=== PATIENT | female | born 1985 | race Two or more races ===

== ENCOUNTER 2019-11-15 06:00 | Inpatient (IN) | payer BC, OTHER ==
[2019-11-15] MEDS ORDERED: OXYTOCIN 10 UNIT/ML 1 ML VIAL IM PRN (07:05)
[2019-11-15] MEDS ORDERED: LIDOCAINE 0.5% (PF) 5 MG/ML (50 ML SDV) SQ PRN (07:05)
[2019-11-15] MEDS ORDERED: CARBOPROST TROMETHAMINE 250 MCG/ML 1 ML AMP IM PRN (07:05)
[2019-11-15] MEDS ORDERED: TERBUTALINE 1 MG/ML VIAL SQ PRN (07:05)
[2019-11-15] MEDS ORDERED: METHYLERGONOVINE 0.2 MG/ML 1 ML AMP IM PRN (07:05)
[2019-11-15 07:12] LABS: Glucose,Whole Blood 97 mg/dL (75-99)
[2019-11-15] MEDS ORDERED: OXYTOCIN 30 UNITS/500 ML NS 30 UNIT in SALINE 1 500ML.BAG IV SCH (07:15)
[2019-11-15 07:25] LABS: Basophils # (A) 0.1 k/uL (0-0.2); Basophils % (A) 1 %; Eosinophils # (A) 0.1 k/uL (0-0.7); Eosinophils % (A) 1 %; HCT 45.7 % (34.0-46.0); HGB 14.9 gm/dL (11.4-16.0); Lymphocytes # (A) 2.7 k/uL (1.0-4.8); Lymphocytes % (A) 28 %; MCH 26.9 pg (25.0-35.0); MCHC 32.6 g/dL (31.0-37.0); MCV 82.3 fL (80.0-100.0); Mean Platelet Volume 7.8; Monocytes # (A) 0.4 k/uL (0-1.0); Monocytes % (A) 4 %; Neutrophils # (A) 6.6 k/uL (1.3-7.7); Neutrophils % (A) 66 %; Platelet Count 226 k/uL (150-450); RBC 5.55 m/uL (3.80-5.40); RDW 14.1 % (11.5-15.5); WBC 9.9 k/uL (3.8-10.6)
[2019-11-15] MEDS ORDERED: AMPICILLIN 2,000 MG in SODIUM CHLORIDE 0.9% 100 ML IVPB STA (07:26)
[2019-11-15] MEDS: LACTATED RINGERS 1,000 ML IV SCH ×2 (08:13→11:45)
--- NOTE | 2019-11-15 08:25 | P.HPOB ---
History of Present Illness H&P Date: 11/15/19 Chief Complaint: Induction of labor 33-year-old presents at 39 weeks and 2 days for induction of labor. Her cervix is 1 cm dilated, 80% effaced, and -2 station. She is francisco j irregularly. heart tones 130 with moderate variability and reactive. Review of Systems All systems: negative Constitutional: Denies chills, Denies fever Eyes: denies blurred vision, denies pain Ears, nose, mouth and throat: Denies headache, Denies sore throat Cardiovascular: Denies chest pain, Denies shortness of breath Respiratory: Denies cough Gastrointestinal: Denies abdominal pain, Denies diarrhea, Denies nausea, Denies vomiting Genitourinary: Denies dysuria, Denies hematuria Musculoskeletal: Denies myalgias Integumentary: Denies pruritus, Denies rash Neurological: Denies numbness, Denies weakness Psychiatric: Denies anxiety, Denies depression Endocrine: Denies fatigue, Denies weight change Past Medical History Additional Past Medical History / Comment(s): Obstetric history: This is her first and she's had care with me. HIV nonreactive, RPR nonreactive, hepatitis B-, Blood type is B+, positive GBS bacteriuria. She has been diagnosed with gestational diabetes and has been followed with [facility] and myself. She's been getting BPP's and NSTs as well as growth ultrasounds which have been normal. Her sugars are controlled with insulin. Additional Past Surgical History / Comment(s): LEEP Past Psychological History: No Psychological Hx Reported Past Alcohol Use History: None Reported Past Drug Use History: None Reported Medications and Allergies Home Medications Medication Instructions Recorded Confirmed Type Insulin NPH [humuLIN N] 18 units SQ HS 11/15/19 11/15/19 History Pnv No.95/Ferrous Fum/Folic AC 1 each PO DAILY 11/15/19 11/15/19 History [ Multivitamin Tablet] Allergies Allergy/AdvReac Type Severity Reaction Status Date / Time azithromycin Allergy Rash/Hives Verified 11/15/19 07:02 Exam Osteopathic Statement: *. No significant issues noted on an osteopathic structural exam other than those noted in the History and Physical/Consult. Intake and Output 11/14/19 11/15/19 11/15/19 22:59 06:59 14:59 Other: Weight 105.687 kg Heart: Regular rate and rhythm Lungs: Clear to auscultation bilaterally Abdomen: Soft, nontender Extremities: Negative Homans sign Results Result Diagrams: 11/15/19 07:05 Abnormal Lab Results - Last 24 Hours (Table) 11/15/19 Range/Units 07:05 RBC 5.55 H (3.80-5.40) m/uL Assessment and Plan (1) Normal labor Current Visit: Yes Status: Acute Code(s): O80 - ENCOUNTER FOR FULL-TERM UNCOMPLICATED DELIVERY; Z37.9 - OUTCOME OF DELIVERY, UNSPECIFIED SNOMED Code(s): 69745450 (2) Gestational diabetes Current Visit: Yes Status: Acute Code(s): O24.419 - GESTATIONAL DIABETES MELLITUS IN , UNSP CONTROL SNOMED Code(s): 19227970 Plan: 1. Monitor blood sugars 2. Induction of labor with amniotomy and Pitocin 3. Anticipate normal vaginal delivery
[2019-11-15 09:16] LABS: Glucose,Whole Blood 85 mg/dL (75-99)
[2019-11-15 11:33] LABS: Glucose,Whole Blood 85 mg/dL (75-99)
[2019-11-15] MEDS ORDERED: SODIUM CHLORIDE 0.9% 100 ML BAG ONE (11:41)
[2019-11-15] MEDS ORDERED: ROPIVACAINE 5MG/ML 20ML VIAL ONE (11:41)
[2019-11-15] MEDS ORDERED: fentaNYL (PF) 50 MCG/ML 5 ML AMP ONE (11:41)
[2019-11-15] MEDS: AMPICILLIN 1,000 MG in SODIUM CHLORIDE 0.9% 50 ML IVPB SCH ×3 (12:11→19:49)
[2019-11-15 13:25] LABS: Glucose,Whole Blood 74 mg/dL (75-99)
[2019-11-15 15:10] LABS: Glucose,Whole Blood 70 mg/dL (75-99)
[2019-11-15 17:26] LABS: Glucose,Whole Blood 78 mg/dL (75-99)
[2019-11-15 19:10] LABS: Glucose,Whole Blood 65 mg/dL (75-99)
[2019-11-15 20:13] LABS: Glucose,Whole Blood 89 mg/dL (75-99)
[2019-11-15 21:26] LABS: Glucose,Whole Blood 79 mg/dL (75-99)
[2019-11-15 22:13] LABS: Glucose,Whole Blood 76 mg/dL (75-99)
[2019-11-15] MEDS ORDERED: CITRIC ACID-SODIUM CITRATE 15 ML CUP PO ONE (23:11)
[2019-11-15 23:23] LABS: Glucose,Whole Blood 86 mg/dL (75-99)
[2019-11-15] MEDS ORDERED: KETOROLAC 30 MG/ML 1 ML VIAL ONE (23:35)
[2019-11-15] MEDS ORDERED: ceFAZolin 1,000 MG VIAL ONE (23:35)
[2019-11-15] MEDS ORDERED: MORPHINE SULFATE (PF) 0.3 MG/0.3 ML SYR ONE (23:35)
[2019-11-15] MEDS ORDERED: fentaNYL (PF) 50 MCG/ML 2 ML AMP ONE (23:35)
[2019-11-15] MEDS ORDERED: OXYTOCIN 10 UNIT/ML 1 ML VIAL ONE (23:35)
[2019-11-15] MEDS ORDERED: ONDANSETRON 4 MG/2 ML VIAL ONE (23:35)
[2019-11-16] MEDS ORDERED: diphenhydrAMINE 50 MG/ML 1 ML VIAL IVP PRN ×3 (00:04→00:21)
[2019-11-16] MEDS ORDERED: NALOXONE 0.4 MG/ML 1 ML VIAL IV PRN (00:04)
[2019-11-16] MEDS ORDERED: KETOROLAC 30 MG/ML 1 ML VIAL IVP PRN (00:04)
[2019-11-16] MEDS ORDERED: ONDANSETRON 4 MG/2 ML VIAL IVP PRN (00:04)
[2019-11-16] MEDS ORDERED: MORPHINE SULFATE 2 MG/ML SYRINGE IVP PRN (00:04)
[2019-11-16] MEDS ORDERED: diphenhydrAMINE 25 MG CAP PO PRN (00:21)
[2019-11-16] MEDS ORDERED: diphenhydrAMINE 50 MG CAP PO PRN (00:21)
[2019-11-16] MEDS ORDERED: METOCLOPRAMIDE 5 MG/ML 2 ML VIAL IVP PRN (00:21)
[2019-11-16] MEDS ORDERED: ZOLPIDEM 5 MG TAB PO PRN (00:21)
[2019-11-16] MEDS ORDERED: LACTATED RINGERS 1,000 ML IV SCH (00:30)
[2019-11-16] MEDS ORDERED: OXYTOCIN 20 UNITS/1000 ML NS 1,000 ML IV SCH (00:30)
--- NOTE | 2019-11-16 00:30 | P.OP ---
Date of Procedure: 11/16/19 Preoperative Diagnosis: 1. at 39 weeks and 5 days 2. Failure to progress 3. tachycardia 4. Gestational diabetes Postoperative Diagnosis: 1. at 39 weeks and 5 days 2. Failure to progress 3. tachycardia 4. Gestational diabetes 5. Large for gestational age baby Procedure(s) Performed: Primary low transverse Anesthesia: spinal Surgeon: Leanne Peacock Post Acute Care Nurse Practitioner #1: Gisele Bolanos Estimated Blood Loss (ml): 600 IV fluids (ml): 800 Urine output (ml): 100 Pathology: other (Placenta) Condition: stable Disposition: floor Indications for Procedure: 33-year-old presented at 39 weeks and 5 days for induction of labor. Her cervix was 1 cm dilated, 80% effaced, and -2 station. She is francisco j irregularly. heart tones 130 with moderate variability and reactive. Pitocin was started and amniotomy was performed at 7:45 AM and clear fluid noted. When she was very uncomfortable and 3 cm she did get an epidural. She labored for several hours and did get to 7 cm dilated. She remained is dilation for a few hours and the baby started to increase in heart rate to 160s maintaining moderate variability. Due to the gestational diabetes and the potential for macrosomia along with the arrest of dilatation, as well as the heart rate, the decision was made for section. Informed consent was obtained and section was called. Operative Findings: Viable female, Apgars 8, 9, weight 9 lbs. 11 oz. Normal uterus, tubes, ovaries. Description of Procedure: Patient was taken to the operating room where spinal anesthesia was found be adequate. She was prepped and draped in normal sterile fashion in dorsal supine position with a leftward tilt. Pfannenstiel skin incision was made the scalpel and carried through to the underlying layer of fascia with the scalpel. Fascia was incised in midline and carried bilaterally with the Rebolledo scissors. The superior aspect of the fascial incision was grasped with Celia clamps elevated and the underlying rectus muscles dissected off with the Rebolledo's. Attention was then turned to inferior aspect of same incision which in a similar fashion was grasped tented up and the underlying rectus muscles dissected off with the Rebolledo's. The rectus muscles were the midline and the peritoneum was identified tented up and entered sharply with the scalpel. The incision was extended superiorly and inferiorly with good visualization of the bladder. The bladder blade was inserted and the vesicouterine peritoneum was incised the Me tzenbaums then carried bilaterally and bladder flap created digitally. A low transverse incision was then made on the uterus with the scalpel. This was carried bilaterally and digital manner. Infant's head delivered atraumatically, nose and mouth bulb suctioned, cord clamped and cut, handed off to waiting nurses. Apgars 8,9, weight 9 lbs. 11 oz. Placenta delivered manually, intact with three-vessel cord. The uterus is exteriorized and cleared of all clots and debris. The uterine incision was closed with 0 Vicryl in a running locked fashion. Second layer of the same sutures used in imbricating fashion to obtain excellent hemostasis. Both ovaries and tubes appeared normal. The uterus was placed back into the abdomen. The peritoneum was reapproximated using 2-0 Vicryl in a running fashion. The fascia was reapproximated using 0 Vicryl in a running fashion. The subcutaneous tissues closed with 3-0 Vicryl running fashion. The skin was closed maite. Patient tolerated the procedure well, sponge and instrument counts were correct times 2 and she was taken to the recovery room in stable condition.
[2019-11-16 07:08] LABS: Basophils % (A) 0 %; Eosinophils % (A) 0 %; Lymphocytes % (A) 16 %; MCH 27.2 pg (25.0-35.0); MCHC 32.3 g/dL (31.0-37.0); MCV 84.2 fL (80.0-100.0); Mean Platelet Volume 7.9; Monocytes # (A) 0.5 k/uL (0-1.0); Monocytes % (A) 4 %; Neutrophils # (A) 9.7 k/uL (1.3-7.7); Neutrophils % (A) 79 %; Platelet Count 149 k/uL (150-450); RBC 4.27 m/uL (3.80-5.40); RDW 14.4 % (11.5-15.5); WBC 12.4 k/uL (3.8-10.6)
[2019-11-16 07:13] LABS: HGB 11.6 gm/dL (11.4-16.0)
[2019-11-16] MEDS: KETOROLAC 30 MG/ML 1 ML VIAL IVP PRN ×3 (07:20→18:24)
[2019-11-16] MEDS: SENNOSIDES-DOCUSATE SODIUM 1 EACH TAB PO SCH ×2 (08:43→20:27)
--- NOTE | 2019-11-16 08:45 | P.PN ---
Progress Note - Text Progress Note Date: 11/16/19 (012) Anesthesia Postop day 1 Subjective: Status Post with Duramorph. Patient seen and examined. Doing well without complaint. VAS 0. No nausea or vomiting. Mild pruritus tolerable.. Afebrile. Gross lower extremity strength intact. Spinal site intact without induration. Without apparent anesthetic complications. Objective: Vital signs reviewed Lungs: Good chest excursion Abdomen: Appears nondistended Assessment: Status post with Duramorph postop day 1 Plan: Continue current care with your medical management. Anticipated and the Duramorph around midnight tonight, you may see increased pain needs around this time.
[2019-11-16] MEDS: ACETAMINOPHEN TAB 325 MG TAB PO PRN (21:07)
[2019-11-17] MEDS: KETOROLAC 30 MG/ML 1 ML VIAL IVP PRN (00:29)
[2019-11-17] MEDS: ACETAMINOPHEN TAB 325 MG TAB PO PRN (03:36)
[2019-11-17] MEDS: IBUPROFEN 600 MG TAB PO PRN ×3 (06:42→20:16)
--- NOTE | 2019-11-17 07:50 | P.PNOBGPC ---
Subjective - Subjective Principal diagnosis: Status post primary low transverse postop day #1 Interval history: Patient seen and examined. Denies nausea, vomiting, chest pain, shortness of breath or calf pain. Patient reports: Reports appetite normal, Reports voiding normally, Reports pain well controlled : doing well Objective - Vital Signs Latest vital signs: Vital Signs Temp Pulse Resp BP Pulse Ox 11/17/19 00:00 98.1 F 73 16 113/72 98 11/16/19 20:00 97.7 F 78 16 112/68 100 11/16/19 16:00 98.8 F 128 H 18 125/82 11/16/19 11:42 97.8 F 81 18 123/70 11/16/19 09:00 18 11/16/19 08:00 97.9 F 86 16 121/71 Intake and Output 11/16/19 11/17/19 11/17/19 22:59 06:59 14:59 Output Total 400 Balance -400 Output: Urine 400 Other: # Voids 1 1 - Exam Lungs: bilateral: normal Chest: Normal S1, Normal S2 Extremities: Present: normal Abdomen: Present: normal appearance, soft. Absent: distention, tenderness Incision: Present: normal, dry, intact Uterus: Present: normal, firm Assessment and Plan (1) Normal labor Current Visit: Yes Status: Resolved Code(s): O80 - ENCOUNTER FOR FULL-TERM UNCOMPLICATED DELIVERY; Z37.9 - OUTCOME OF DELIVERY, UNSPECIFIED SNOMED Code(s): 32461228 (2) Gestational diabetes Current Visit: Yes Status: Acute Code(s): O24.419 - GESTATIONAL DIABETES MELLITUS IN , UNSP CONTROL SNOMED Code(s): 02593205 (3) Status post primary low transverse section Current Visit: Yes Status: Acute Code(s): Z98.891 - HISTORY OF UTERINE SCAR FROM PREVIOUS SURGERY SNOMED Code(s): 384189233 Plan: 1. Increase ambulation 2. Continue pain control
--- NOTE | 2019-11-17 07:53 | P.PNOBGPC ---
Subjective - Subjective Principal diagnosis: Status post primary low transverse postop day #2 Interval history: Patient seen and examined. Denies nausea, vomiting, chest pain, shortness of breath or calf pain. She is concerned about her baby as he did have a fever at delivery but not since then. Maternal medicine had said if the baby did have a fever to look for rupture of the ovarian cyst that had been present on the baby in utero. I would recommend scanning the abdomen and pelvis of the baby with ultrasound, however, this is up to the stencil machine operator. Patient reports: Reports appetite normal, Reports voiding normally, Reports pain well controlled, Reports ambulating normally : doing well Objective - Vital Signs Latest vital signs: Vital Signs Temp Pulse Resp BP Pulse Ox 11/17/19 00:00 98.1 F 73 16 113/72 98 11/16/19 20:00 97.7 F 78 16 112/68 100 11/16/19 16:00 98.8 F 128 H 18 125/82 11/16/19 11:42 97.8 F 81 18 123/70 11/16/19 09:00 18 11/16/19 08:00 97.9 F 86 16 121/71 Intake and Output 11/16/19 11/17/19 11/17/19 22:59 06:59 14:59 Output Total 400 Balance -400 Output: Urine 400 Other: # Voids 1 1 - Exam Lungs: bilateral: normal Chest: Normal S1, Normal S2 Extremities: Present: normal Abdomen: Present: normal appearance, soft. Absent: distention, tenderness Incision: Present: normal, dry, intact Uterus: Present: normal, firm Assessment and Plan (1) Normal labor Current Visit: Yes Status: Resolved Code(s): O80 - ENCOUNTER FOR FULL-TERM UNCOMPLICATED DELIVERY; Z37.9 - OUTCOME OF DELIVERY, UNSPECIFIED SNOMED Code(s): 91128845 (2) Gestational diabetes Current Visit: Yes Status: Acute Code(s): O24.419 - GESTATIONAL DIABETES MELLITUS IN , UNSP CONTROL SNOMED Code(s): 53406425 (3) Status post primary low transverse section Current Visit: Yes Status: Acute Code(s): Z98.891 - HISTORY OF UTERINE SCAR FROM PREVIOUS SURGERY SNOMED Code(s): 215661758 Plan: 1. Continue postoperative care 2. quantitative consultant to see patient for help with breast-feeding
[2019-11-17] MEDS: SENNOSIDES-DOCUSATE SODIUM 1 EACH TAB PO SCH ×2 (10:16→20:16)
[2019-11-17] MEDS: HYDROcodone/APAP 7.5-325MG 1 EACH TAB PO PRN ×3 (10:36→23:47)
[2019-11-18 00:39] VITALS: RESP 16
[2019-11-18] MEDS: IBUPROFEN 600 MG TAB PO PRN (05:57)
[2019-11-18 07:36] VITALS: BP 119/79; PULSE 90; TEMP 97.7
--- NOTE | 2019-11-18 08:16 | P.DS ---
Providers Date of admission: 11/15/19 06:58 Expected date of discharge: 11/18/19 Attending physician: Leanne Peacock Primary care physician: Stated None - Discharge Diagnosis(es) (1) Normal labor Current Visit: Yes Status: Resolved (2) Gestational diabetes Current Visit: Yes Status: Acute (3) Status post primary low transverse section Current Visit: Yes Status: Acute Hospital Course: Pt presented for induction of labor. She underwent a primary low transverse c- section for failure to progress and tachycardia. Post operative course was uncomplicated. She is ambulating and voiding without difficulty. Having bowel movements and tolerating a regular diet. She will be discharged home POD #1 in stable condition to follow up with me in 1 week. Plan - Discharge Summary New Discharge Prescriptions: New HYDROcodone/APAP 7.5-325MG [[place] 7.5-325] 1 each PO Q6H PRN #12 tab PRN Reason: Pain No Action Pnv No.95/Ferrous Fum/Folic AC [ Multivitamin Tablet] 1 each PO DAILY Insulin NPH [humuLIN N] 18 units SQ HS Discharge Medication List Insulin NPH [humuLIN N] 18 units SQ HS 11/15/19 [History] Pnv No.95/Ferrous Fum/Folic AC [ Multivitamin Tablet] 1 each PO DAILY 11/15/19 [History] HYDROcodone/APAP 7.5-325MG [[place] 7.5-325] 1 each PO Q6H PRN #12 tab 11/18/19 [Rx] Follow up Appointment(s)/Referral(s): Leanne Peacock DO [Doctor of Osteopathic Medicine] - 1 Week Discharge Disposition: HOME SELF-CARE
[2019-11-18] MEDS: HYDROcodone/APAP 7.5-325MG 1 EACH TAB PO PRN (10:38)
== END 2019-11-18 11:45 | disposition home or self-care (01) | DRG 788 ==
LOC: 4FBP 06:58
PROVIDERS: ADMIT Obstetrics & Gynecology; ATTEND Obstetrics & Gynecology
PROC: 3E033VJ Introduction of Other Hormone into Peripheral Vein, Percutaneous Approach (ICD-10-PCS; 2019-11-15)
PROC: 3E0R3BZ Introduction of Anesthetic Agent into Spinal Canal, Percutaneous Approach (ICD-10-PCS; 2019-11-15)
PROC: 10907ZC Drainage of Amniotic Fluid, Therapeutic from Products of Conception, Via Natural or Artificial Opening (ICD-10-PCS; 2019-11-15)
PROC: 10D00Z1 Extraction of Products of Conception, Low, Open Approach (ICD-10-PCS; principal; 2019-11-16)
DX: O24.424 Gestational diabetes mellitus in childbirth, insulin controlled (principal); O99.824 Streptococcus B carrier state complicating childbirth; O36.63X0 Maternal care for excessive fetal growth, third trimester, not applicable or unspecified; O76 Abnormality in fetal heart rate and rhythm complicating labor and delivery; O62.1 Secondary uterine inertia; L29.9 Pruritus, unspecified; Z3A.39 39 weeks gestation of pregnancy; Z37.0 Single live birth; Z79.899 Other long term (current) drug therapy; Z88.1 Allergy status to other antibiotic agents
CPT/HCPCS: 85025; 86850; 86900; 86901

== ENCOUNTER 2021-02-06 13:47 | Inpatient (IN) | payer BC, OTHER ==
[2021-02-06] MEDS ORDERED: CITRIC ACID-SODIUM CITRATE 15 ML CUP PO ONE (14:06)
[2021-02-06] MEDS ORDERED: LACTATED RINGERS 1,000 ML IV ONE (14:06)
[2021-02-06 14:35] LABS: Glucose,Whole Blood 77 mg/dL (75-99)
[2021-02-06 14:45] LABS: Basophils % (A) 0 %; Eosinophils # (A) 0.1 k/uL (0-0.7); Eosinophils % (A) 1 %; HCT 45.4 % (34.0-46.0); HGB 15.6 gm/dL (11.4-16.0); Lymphocytes # (A) 2.1 k/uL (1.0-4.8); Lymphocytes % (A) 18 %; MCH 27.6 pg (25.0-35.0); MCHC 34.4 g/dL (31.0-37.0); MCV 80.4 fL (80.0-100.0); Mean Platelet Volume 7.4; Monocytes # (A) 0.4 k/uL (0-1.0); Monocytes % (A) 4 %; Neutrophils # (A) 9.1 k/uL (1.3-7.7); Neutrophils % (A) 77 %; Platelet Count 217 k/uL (150-450); RBC 5.64 m/uL (3.80-5.40); WBC 11.9 k/uL (3.8-10.6)
[2021-02-06] MEDS ORDERED: ceFAZolin 3 GM in SODIUM CHLORIDE 0.9% 100 ML IVPB ONE (15:00)
[2021-02-06] MEDS ORDERED: KETOROLAC 15 MG/ML 1 ML VIAL ONE (15:08)
[2021-02-06] MEDS ORDERED: MORPHINE SULFATE (PF) 0.3 MG/0.3 ML SYR ONE (15:08)
[2021-02-06] MEDS ORDERED: ONDANSETRON 4 MG/2 ML VIAL ONE (15:08)
[2021-02-06] MEDS ORDERED: DEXAMETHASONE SOD PHOSPHATE 10 MG/ML 1 ML VIAL ONE (15:08)
[2021-02-06] MEDS ORDERED: PHENYLEPHRINE-0.9% NACL SYG 1,000 MCG/10 ML SYRINGE ONE (15:08)
--- NOTE | 2021-02-06 15:11 | P.HPOB ---
History of Present Illness H&P Date: 02/06/21 Chief Complaint: Spontaneous rupture of membranes This is a 35-year-old female 2 para 1 with a estimated date of confinement of 02/14/2021, estimated gestational age of 38-6/7 weeks who presents to labor and delivery with complaints of spontaneous rupture membranes with clear fluid noted at approximately 11 AM this morning. She has been feeling contractions since that time. course has been complicated by gestational diabetes on insulin. care has been with Dr. Peacock. labs GC/chlamydia/Trichomonas-negative Hepatitis B surface antigen-negative RPR-nonreactive Rubella-immune Blood type-A+ Antibody screen-negative HIV-nonreactive Hemoglobin-13.8 1 hour Glucola-152 Three-hour Glucola-abnormal Group B streptococcus-positive Obstetrical history: . History of 1 delivery at term. Gynecologic history: History of a LEEP procedure for cervical dysplasia in 2015. History of polycystic ovarian syndrome. Social history: She is . She works as an RN. 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 History of Any Multi-Drug Resistant Organisms: None Reported Past Surgical History: Section Additional Past Surgical History / Comment(s): LEEP, D&C, exploratory laparotomy 2 in 2012 and 2015, laparoscopic right ovarian cystectomy-2012, hysteroscopic removal of uterine septum Past Anesthesia/Blood Transfusion Reactions: No Reported Reaction, Postoperative Nausea & Vomiting (PONV) Past Psychological History: No Psychological Hx Reported Smoking Status: Never smoker Past Alcohol Use History: None Reported Past Drug Use History: None Reported - Past Family History Father History Unknown: Yes Family Medical History: Congestive Heart Failure (CHF), Hypertension Additional Family Medical History / Comment(s): Laryngeal cancer Medications and Allergies Home Medications Medication Instructions Recorded Confirmed Type Insulin NPH [humuLIN N] 52 units SQ HS 11/15/19 02/06/21 History Pnv No.95/Ferrous Fum/Folic AC 1 each PO DAILY 11/15/19 02/06/21 History [ Multivitamin Tablet] INSULIN LISPRO (HumaLOG) [humaLOG] 26 units SQ W/SUPPER 02/06/21 02/06/21 History Allergies Allergy/AdvReac Type Severity Reaction Status Date / Time alcohol Allergy Rash/Hives Verified 02/06/21 13:52 [From Mastisol Adhesive] azithromycin Allergy Rash/Hives Verified 02/06/21 13:51 gum mastic Allergy Rash/Hives Verified 02/06/21 13:52 [From Mastisol Adhesive] methyl salicylate Allergy Rash/Hives Verified 02/06/21 13:52 [From Mastisol Adhesive] storax Allergy Rash/Hives Verified 02/06/21 13:52 [From Mastisol Adhesive] Exam Osteopathic Statement: *. No significant issues noted on an osteopathic structural exam other than those noted in the History and Physical/Consult. Vital Signs Temp Pulse Resp BP Pulse Ox 02/06/21 14:23 98.0 F 130 H 18 137/83 98 Intake and Output 02/05/21 02/06/21 02/06/21 22:59 06:59 14:59 Other: Weight 119.748 kg HEENT: Within normal limits Heart: Regular rate and rhythm Lungs: Clear to auscultation bilaterally Abdomen: Cervix: 2 cm/60%/-2 station, positive amnisure with clear fluid noted heart tones: Reactive, category 1 Contractions: Every 2-3 minutes Extremities: Negative Homans Results Result Diagrams: 02/06/21 14:30 Abnormal Lab Results - Last 24 Hours (Table) 02/06/21 Range/Units 14:30 WBC 11.9 H (3.8-10.6) k/uL RBC 5.64 H (3.80-5.40) m/uL Neutrophils # 9.1 H (1.3-7.7) k/uL Assessment and Plan (1) 38 weeks gestation of Current Visit: Yes Status: Acute Code(s): Z3A.38 - 38 WEEKS GESTATION OF SNOMED Code(s): 63692072 (2) Previous delivery affecting Current Visit: Yes Status: Acute Code(s): O34.219 - MATERNAL CARE FOR UNSP TYPE SCAR FROM PREVIOUS DEL SNOMED Code(s): 815502808 (3) Gestational diabetes Current Visit: No Status: Acute Code(s): O24.419 - GESTATIONAL DIABETES MELLITUS IN , UNSP CONTROL SNOMED Code(s): 33632091 Plan: Admission for active labor. Proceed with repeat low transverse section. I have discussed the risks, benefits, and alternative therapies for the above- mentioned procedure and for both sedation/anesthesia as well as necessary blood products administration, if indicated, as they pertain to this patient. The patient has indicated her understanding and acceptance of the risks and procedures discussed.
[2021-02-06] MEDS ORDERED: KETOROLAC 15 MG/ML 1 ML VIAL IVP PRN (15:41)
[2021-02-06] MEDS ORDERED: HYDROmorphone 0.5 MG/0.5 ML SYRINGE IVP PRN (15:41)
[2021-02-06] MEDS ORDERED: ONDANSETRON 4 MG/2 ML VIAL IVP PRN ×2 (15:41→16:13)
[2021-02-06] MEDS ORDERED: diphenhydrAMINE 50 MG/ML 1 ML VIAL IVP PRN ×3 (15:41→16:13)
[2021-02-06] MEDS ORDERED: NALOXONE 0.4 MG/ML 1 ML VIAL IV PRN ×2 (15:41→16:13)
--- NOTE | 2021-02-06 16:04 | P.OP ---
Date of Procedure: 02/06/21 Preoperative Diagnosis: 1. Intrauterine at 38-6/7 weeks. 2. History of previous section. 3. Active labor. 4. Gestational diabetes on insulin. Postoperative Diagnosis: Same Procedure(s) Performed: Repeat low transverse section Anesthesia: spinal (Duramorph) Surgeon: Alison Marroquin Outside Sales Account Manager #1: Gisele Bolanos Estimated Blood Loss (ml): 330 Pathology: other (Placenta) Condition: stable Disposition: floor Indications for Procedure: This is a 35-year-old female 2 para 1 at 38-6/7 weeks who presented with spontaneous rupture of membranes and contractions. She does have a history of a previous section and desires repeat section. I have discussed the risks, benefits, and alternative therapies for the above- mentioned procedure and for both sedation/anesthesia as well as necessary blood products administration, if indicated, as they pertain to this patient. The patient has indicated her understanding and acceptance of the risks and procedures discussed. Operative Findings: A viable female is noted in the vertex presentation with scores of 8 at 1 minute and 9 at 5 minutes and infant weight of 9 lbs. 13 oz. Normal uterus tubes and ovaries are noted. Description of Procedure: The patient is taken to the operating room where she is placed in the dorsal supine position with leftward tilt after spinal Duramorph anesthesia is given. She is prepped and draped in the normal sterile fashion. A panniculus retractor was placed on the patient's abdomen prior to prepping. Skin was tested and found to be adequately anesthetized. A Pfannenstiel skin incision was made with a scalpel through the previous laparotomy scar. A second knife was used to carry the incision down to the underlying layer of fascia. The fascia was ni cked in the midline with a scalpel and then extended laterally bilaterally with Rebolledo scissors. The anterior lip of the fascia was grasped with 2 Marcos clamps and then dissected off the underlying rectus muscle in the midline with Rebolledo scissors. The inferior aspect of the fascial incision was grasped with 2 Marcos clamps and dissected off the underlying rectus muscle and the midline with Rebolledo scissors. Next the peritoneum layer was tented up with 2 hemostats and then entered sharply with the scalpel. The incision is extended superiorly and inferiorly with Metzenbaum scissors. Next a DeLee retractor is placed. The vesicouterine peritoneum is entered sharply with Metzenbaum scissors and extended laterally bilaterally with Metzenbaum scissors and then the bladder flap is pushed inferiorly. The lower uterine segment is incised in transverse fashion with the scalpel. Clear fluid is noted. The incision was then extended laterally bilaterally with 2 fingers. Next the 's head is delivered through the incision. Nose and mouth are bulb suctioned. The remainder of the is easily delivered and placed on mother's abdomen. Cord is clamped and cut. is taken to warmer by nursing staff. Uterine fundus is gently massaged and placenta is delivered manually. Uterus is exteriorized and cleared of all clots and debris. Uterine incision is closed with 0 Vicryl suture in a running locked fashion. A second layer of 0 Vicryl suture is used in a running fashion for hemostasis. Once adequate hemostasis as assured, the vesicouterine peritoneum is reapproximated with 2-0 Vicryl suture in a running fashion. Posterior cul-de-sac is suctioned of all clots and debris. Uterus is returned to the abdomen. Incision is noted to be hemostatic. Peritoneal layer is closed with 0 Vicryl suture in a running fashion. Muscle layer is reapproximated with 0 Vicryl suture in interrupted fashion. Several interrupted stitches are placed for hemostasis. Fascia layer is then closed with 0 PDS suture with 2 sutures meeting in the midline and the knots buried in either side and in the midline. The subcutaneous tissue was then closed with 2-0 Vicryl suture. Skin layer was then closed with maite. All sponge and needle counts are correct. The patient is taken to recovery room in stable condition.
[2021-02-06] MEDS ORDERED: LANOLIN CREAM 5 GM TUBE TOPICAL PRN (16:13)
[2021-02-06] MEDS ORDERED: HYDROmorphone 0.2 MG/1 ML SYRINGE IVP PRN (16:13)
[2021-02-06] MEDS ORDERED: diphenhydrAMINE 50 MG CAP PO PRN (16:13)
[2021-02-06] MEDS ORDERED: ZOLPIDEM 5 MG TAB PO PRN (16:13)
[2021-02-06] MEDS ORDERED: diphenhydrAMINE 25 MG CAP PO PRN (16:13)
[2021-02-06] MEDS ORDERED: HYDROmorphone 1 MG/ML 1 ML SYRINGE IVP PRN (16:13)
[2021-02-06] MEDS ORDERED: SIMETHICONE 80 MG CHEWABLE PO PRN (16:13)
[2021-02-06] MEDS ORDERED: METOCLOPRAMIDE 5 MG/ML 2 ML VIAL IVP PRN (16:13)
[2021-02-06] MEDS ORDERED: OXYTOCIN 30 UNITS/500 ML NS 30 UNIT in SALINE 1 500ML.BAG IV SCH (16:13)
[2021-02-06] MEDS ORDERED: HYDROmorphone 2 MG TAB PO PRN (16:13)
[2021-02-06 17:11] VITALS: RESP 16
[2021-02-06] MEDS: LACTATED RINGERS 1,000 ML IV SCH ×2 (17:19→22:15)
[2021-02-06] MEDS: ACETAMINOPHEN TAB 500 MG TAB PO SCH (18:25)
[2021-02-06] MEDS: SENNOSIDES-DOCUSATE SODIUM 1 EACH TAB PO SCH (19:56)
[2021-02-06] MEDS: KETOROLAC 15 MG/ML 1 ML VIAL IVP SCH (22:11)
[2021-02-06] MEDS: IBUPROFEN 600 MG TAB PO SCH (22:15)
[2021-02-06 22:21] LABS: Glucose,Whole Blood 122 mg/dL (75-99)
[2021-02-07 00:05] LABS: Hemoglobin A1C 6.2 % (4.0-6.0)
[2021-02-07] MEDS: ACETAMINOPHEN TAB 500 MG TAB PO SCH ×4 (01:39→14:17)
[2021-02-07] MEDS: KETOROLAC 15 MG/ML 1 ML VIAL IVP SCH ×4 (03:44→16:21)
[2021-02-07 06:40] LABS: Glucose,Whole Blood 112 mg/dL (75-99)
[2021-02-07] MEDS: LACTATED RINGERS 1,000 ML IV SCH ×2 (06:48→14:17)
[2021-02-07] MEDS: IBUPROFEN 600 MG TAB PO SCH ×4 (06:49→23:03)
[2021-02-07 06:57] LABS: Basophils % (A) 0 %; Eosinophils % (A) 0 %; HCT 36.6 % (34.0-46.0); Lymphocytes # (A) 2.3 k/uL (1.0-4.8); Lymphocytes % (A) 17 %; MCH 26.6 pg (25.0-35.0); MCHC 32.2 g/dL (31.0-37.0); MCV 82.4 fL (80.0-100.0); Mean Platelet Volume 7.8; Monocytes # (A) 0.5 k/uL (0-1.0); Monocytes % (A) 4 %; Neutrophils # (A) 10.3 k/uL (1.3-7.7); Neutrophils % (A) 77 %; Platelet Count 170 k/uL (150-450); RBC 4.44 m/uL (3.80-5.40); RDW 14.3 % (11.5-15.5); WBC 13.3 k/uL (3.8-10.6)
[2021-02-07 07:00] LABS: HGB 11.8 gm/dL (11.4-16.0)
[2021-02-07] MEDS: SENNOSIDES-DOCUSATE SODIUM 1 EACH TAB PO SCH ×2 (08:20→19:43)
[2021-02-07] MEDS: PRENATAL VIT-IRON-FOLIC ACID 1 EACH CAP PO SCH (09:18)
[2021-02-07 11:06] LABS: Glucose,Whole Blood 119 mg/dL (75-99)
--- NOTE | 2021-02-07 14:14 | P.PNOBGPC ---
Subjective - Subjective Principal diagnosis: Status post repeat section postoperative day #1 Interval history: Patient is doing okay. She is ambulating. Lochia is minimal. She is working on breast-feeding. Baby appears to be tongue tied. Pain has been fairly well controlled. She is passing flatus but no bowel movement yet. She is tolerating regular diet. Her fasting sugar this morning was 112, but she did have juices through the night. Patient reports: Reports appetite normal, Reports voiding normally, Reports pain well controlled, Reports ambulating normally : doing well Objective - Vital Signs Latest vital signs: Vital Signs Temp Pulse Resp BP Pulse Ox 02/07/21 12:00 98.1 F 91 16 104/72 100 02/07/21 08:00 97.5 F L 87 16 107/73 02/07/21 04:00 97.8 F 61 16 107/70 100 02/07/21 00:00 98.3 F 75 16 106/66 100 02/06/21 22:00 16 02/06/21 20:00 97.9 F 100 16 125/77 100 02/06/21 18:04 98.0 F 90 16 114/70 100 02/06/21 17:34 79 16 146/65 98 02/06/21 17:04 92 16 121/61 97 02/06/21 16:49 88 16 102/53 98 02/06/21 16:34 85 16 101/57 99 02/06/21 16:19 86 16 96/53 99 02/06/21 16:04 97.1 F L 88 16 93/52 95 02/06/21 14:23 98.0 F 130 H 18 137/83 98 Intake and Output 02/06/21 02/07/21 02/07/21 22:59 06:59 14:59 Output Total 100 1500 300 Balance -100 -1500 -300 Output: Urine 100 1500 300 Other: # Voids 1 - Exam Extremities: Present: normal, edema (Trace). Absent: tenderness Abdomen: Present: normal appearance, soft (Positive bowel sounds 4). Absent: distention, tenderness Incision: Present: normal, dry, intact. Absent: erythematous Uterus: Present: normal, firm. Absent: tenderness - Labs Labs: Abnormal Lab Results - Last 24 Hours (Table) 04/24/21 04/24/21 04/24/21 Range/Units 14:30 14:30 22:19 WBC 11.9 H (3.8-10.6) k/uL RBC 5.64 H (3.80-5.40) m/uL Neutrophils # 9.1 H (1.3-7.7) k/uL POC Glucose (mg/dL) 122 H (75-99) mg/dL Hemoglobin A1c 6.2 H (4.0-6.0) % 02/07/21 02/07/21 02/07/21 Range/Units 06:03 06:38 11:05 WBC 13.3 H (3.8-10.6) k/uL RBC (3.80-5.40) m/uL Neutrophils # 10.3 H (1.3-7.7) k/uL POC Glucose (mg/dL) 112 H 119 H (75-99) mg/dL Hemoglobin A1c (4.0-6.0) % Assessment and Plan Assessment: Status post repeat section postoperative day #1 Gestational diabetes-insulin controlled (1) 38 weeks gestation of Current Visit: Yes Status: Acute Code(s): Z3A.38 - 38 WEEKS GESTATION OF SNOMED Code(s): 46841457 (2) Previous delivery affecting Current Visit: Yes Status: Acute Code(s): O34.219 - MATERNAL CARE FOR UNSP TYPE SCAR FROM PREVIOUS DEL SNOMED Code(s): 183489995 (3) Gestational diabetes Current Visit: No Status: Acute Code(s): O24.419 - GESTATIONAL DIABETES MELLITUS IN , UNSP CONTROL SNOMED Code(s): 45400465 Plan: Will continue with postoperative and care today. We'll continue to monitor her sugars but will not treat unless severely abnormal. Patient encouraged to ambulate and may shower.
--- NOTE | 2021-02-07 16:35 | P.PN ---
Progress Note - Text Progress Note Date: 02/07/21 Postoperative day 1 status post section under spinal anesthesia, and i ntrathecal morphine given for postoperative analgesia, patient doing well, there is no anesthesia related complications, Patient had no headache, vital signs stable , Assessment and plan= postop day 1 status post , doing well there is no anesthesia related complication.
[2021-02-07 17:38] LABS: Glucose,Whole Blood 111 mg/dL (75-99)
[2021-02-07] MEDS: HYDROmorphone 2 MG TAB PO PRN (19:44)
[2021-02-08] MEDS: HYDROmorphone 2 MG TAB PO PRN (01:03)
[2021-02-08] MEDS: IBUPROFEN 600 MG TAB PO SCH ×3 (04:54→18:31)
[2021-02-08] MEDS: ACETAMINOPHEN TAB 500 MG TAB PO SCH ×4 (05:17→18:32)
--- NOTE | 2021-02-08 07:31 | P.DS ---
Providers Date of admission: 02/06/21 14:13 Expected date of discharge: 02/08/21 Attending physician: Leanne Peacock Primary care physician: Stated None - Discharge Diagnosis(es) (1) Status post repeat low transverse section Current Visit: Yes Status: Acute Hospital Course: Presented with spontaneous rupture membranes. She underwent a repeat low transverse . Postoperative course was uncomplicated. Denies nausea, vomiting, chest pain, shortness of breath or any calf pain. Her incision is clean, dry, intact. She'll be discharged home post operative day #2 in stable condition to follow-up with me in one week. Plan - Discharge Summary New Discharge Prescriptions: New Ibuprofen [Motrin] 600 mg PO Q6HR PRN #30 tab PRN Reason: Mild Pain Or Fever >= 100.5 HYDROcodone/APAP 7.5-325MG [[place] 7.5-325] 1 tab PO Q4-6H PRN #18 tab PRN Reason: Pain No Action Pnv No.95/Ferrous Fum/Folic AC [ Multivitamin Tablet] 1 each PO DAILY Insulin NPH [humuLIN N] 52 units SQ HS INSULIN LISPRO (HumaLOG) [humaLOG] 26 units SQ W/SUPPER Discharge Medication List Insulin NPH [humuLIN N] 52 units SQ HS 11/15/19 [History] Pnv No.95/Ferrous Fum/Folic AC [ Multivitamin Tablet] 1 each PO DAILY 11/15/19 [History] INSULIN LISPRO (HumaLOG) [humaLOG] 26 units SQ W/SUPPER 02/06/21 [History] HYDROcodone/APAP 7.5-325MG [[place] 7.5-325] 1 tab PO Q4-6H PRN #18 tab 02/08/21 [Rx] Ibuprofen [Motrin] 600 mg PO Q6HR PRN #30 tab 02/08/21 [Rx] Follow up Appointment(s)/Referral(s): Leanne Peacock DO [Doctor of Osteopathic Medicine] - 1 Week Discharge Disposition: HOME SELF-CARE
[2021-02-08] MEDS: SENNOSIDES-DOCUSATE SODIUM 1 EACH TAB PO SCH (07:45)
[2021-02-08] MEDS: PRENATAL VIT-IRON-FOLIC ACID 1 EACH CAP PO SCH (07:46)
[2021-02-08] MEDS ORDERED: HYDROcodone/APAP 7.5-325MG 1 EACH TAB PO ONE (08:04)
[2021-02-08] MEDS ORDERED: HYDROcodone/APAP 7.5-325MG 1 EACH TAB PO PRN (15:29)
[2021-02-08 15:58] VITALS: BP 129/91; PULSE 96; TEMP 98.1
--- NOTE | 2021-02-11 07:39 | P.MSEPDOC ---
Presenting Problems - Arrival Data Date of Arrival on Unit: 02/06/21 Time of Arrival on Unit: 14:02 Mode of Transport: Bed - Complaint OB-Reason for Admission/Chief Complaint: Rule Out SROM Medical History - Information : 2 Para: 1 Term: 1 : 0 Abortions: Spontaneous or Elective: 0 Number of Living Children: 1 - Gestational Age Gestational Age by NATALIE (wks/days): 38 Weeks and 6 Days - History Complications: GDM, Prior Review of Systems - Review of Systems Constitutional: No problems Breast: No problems ENT: No problems Cardiovascular: No problems Respiratory: No problems Gastrointestinal: No problems Genitourinary: No problems Musculoskeletal: No problems Neurological: No problems Skin: No problems Vital Signs - Temperature Temperature: 98.1 F Temperature Source: Oral - Pulse Pulse Oximetery Pulse Rate: 96 Pulse Assessment Method: Pulse Oximetry - Respirations Respiratory Rate: 16 Oxygen Delivery Method: Room Air O2 Sat by Pulse Oximetry: 98 - Blood Pressure Sitting Blood Pressure: 129/91 Blood Pressure Mean: 103 Blood Pressure Source: Automatic Cuff Medical Screen Scoring (Pre) - Cervical Exam Dilation: 1-3 cm = 1 Effacement: More than 50% = 2 Membranes: Ruptured = 3 - Uterine Contractions Frequency: Scheduled / = 6 Duration: > 40 seconds = 2 - Maternal Vital Signs Maternal Temperature: N/A Maternal Blood Pressure: N/A Signs of Preeclampsia: N/A Maternal Respirations: N/A - Maternal Trauma Maternal Trauma: N/A - Assessment - Baby A Baseline FHR: 135 Heart Rate - NICHD Category: Category I (Normal) = 0 NST: Reactive Position: N/A Station: N/A - Total Score - Baby A Total Score - Baby A: 14 - Total Score - Baby B Total Score - Baby B: 14 - Total Score - Baby C Total Score - Baby C: 14 - Level of Risk - Baby A Level of Risk - Baby A: High (10+) - Level of Risk - Baby B Level of Risk - Baby B: High (10+) - Level of Risk - Baby C Level of Risk - Baby C: High (10+) Physician Notification (Pre) - Physician Notified Physician Notified Date: 02/06/21 Physician Notified Time: 14:10 New Order Received: Yes (admit) Disposition - Disposition OB Disposition: Admit Discharge Date: 02/08/21 Discharge Time: 18:50 I agree with the RN Medical Screening Exam: Yes Case reviewed; plan agreed upon as documented in EMR&OBIX.: Yes Diagnosis: ENCOUNTER FOR SUPRVSN OF NORMAL , THIRD TRIMESTER
== END 2021-02-08 18:50 | disposition home or self-care (01) | DRG 787 ==
LOC: FBPOP 13:47 → 4FBP 14:13
PROVIDERS: ADMIT Obstetrics & Gynecology; ATTEND Obstetrics & Gynecology
PROC: 10D00Z1 Extraction of Products of Conception, Low, Open Approach (ICD-10-PCS; principal; 2021-02-06 15:00)
DX: O34.211 Maternal care for low transverse scar from previous cesarean delivery (principal); Q79.60 Ehlers-Danlos syndrome, unspecified; O24.424 Gestational diabetes mellitus in childbirth, insulin controlled; O34.03 Maternal care for unspecified congenital malformation of uterus, third trimester; Z37.0 Single live birth; Z3A.38 38 weeks gestation of pregnancy; Z80.2 Family history of malignant neoplasm of other respiratory and intrathoracic organs; Z82.49 Family history of ischemic heart disease and other diseases of the circulatory system; Z87.410 Personal history of cervical dysplasia
CPT/HCPCS: 59025; 83036; 84112; 85025; 86850; 86900; 86901; 88307; 99213

== ENCOUNTER 2022-03-15 05:28 | Inpatient (IN) | payer BC, OTHER ==
[2022-03-15] MEDS ORDERED: SODIUM CHLORIDE 0.9% 1,000 ML IV STA (05:39)
[2022-03-15 05:44] LABS: Glucose,Whole Blood 225 mg/dL (75-99)
[2022-03-15 06:00] LABS: Basophils # (A) 0.1 k/uL (0-0.2); Basophils % (A) 0 %; Eosinophils % (A) 0 %; HCT 39.4 % (34.0-46.0); HGB 12.1 gm/dL (11.4-16.0); Lymphocytes # (A) 3.3 k/uL (1.0-4.8); Lymphocytes % (A) 17 %; MCH 25.1 pg (25.0-35.0); MCHC 30.6 g/dL (31.0-37.0); MCV 81.9 fL (80.0-100.0); Mean Platelet Volume 7.5; Monocytes # (A) 0.5 k/uL (0-1.0); Monocytes % (A) 3 %; Neutrophils # (A) 15.4 k/uL (1.3-7.7); Neutrophils % (A) 79 %; Platelet Count 367 k/uL (150-450); RDW 14.3 % (11.5-15.5); WBC 19.5 k/uL (3.8-10.6)
--- NOTE | 2022-03-15 06:01 | ED ---
Abdominal Pain HPI - General Chief Complaint: Abdominal Pain Stated Complaint: abd pain Time Seen by Provider: 03/15/22 05:39 Source: patient, family, RN notes reviewed, old records reviewed Mode of arrival: ambulatory Limitations: no limitations - History of Present Illness MD Complaint: abdominal pain -: hour(s) Location: epigastric, suprapubic Radiation: epigastric, suprapubic Migration to: epigastric, suprapubic Severity: severe Severity scale (1-10): 10 Quality: stabbing, fullness, dull Consistency: constant Improves With: nothing Worsens With: nothing Context: recent surgery/procedure (Diagnosis of ectopic ) Associated Symptoms: nausea, vomiting Treatments Prior to Arrival: other (none) - Related Data Home Medications Medication Instructions Recorded Confirmed Insulin NPH [humuLIN N] 52 units SQ HS 11/15/19 03/15/22 Pnv No.95/Ferrous Fum/Folic AC 1 each PO DAILY 11/15/19 03/15/22 [ Multivitamin Tablet] INSULIN LISPRO (HumaLOG) [humaLOG] 26 units SQ W/SUPPER 02/06/21 03/15/22 Previous Rx's Medication Instructions Recorded HYDROcodone/APAP 7.5-325MG [[place] 1 tab PO Q4-6H PRN #18 tab 02/08/21 7.5-325] Ibuprofen [Motrin] 600 mg PO Q6HR PRN #30 tab 03/17/22 oxyCODONE HCL [OxyIR] 5 mg PO Q4HR PRN #12 tab 03/17/22 Allergies Allergy/AdvReac Type Severity Reaction Status Date / Time alcohol Allergy Rash/Hives Verified 02/06/21 13:52 [From Mastisol Adhesive] azithromycin Allergy Rash/Hives Verified 02/06/21 13:51 gum mastic Allergy Rash/Hives Verified 02/06/21 13:52 [From Mastisol Adhesive] methyl salicylate Allergy Rash/Hives Verified 02/06/21 13:52 [From Mastisol Adhesive] storax Allergy Rash/Hives Verified 02/06/21 13:52 [From Mastisol Adhesive] Review of Systems ROS Statement: Those systems with pertinent positive or pertinent negative responses have been documented in the HPI. ROS Other: All systems not noted in ROS Statement are negative. Past Medical History Past Medical History: Diabetes Mellitus 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, PCOS History of Any Multi-Drug Resistant Organisms: None Reported Past Surgical History: Section Additional Past Surgical History / Comment(s): LEEP, D&C, exploratory laparotomy 2 in 2012 and 2015, laparoscopic right ovarian cystectomy-2012, hysteroscopic removal of uterine septum Past Anesthesia/Blood Transfusion Reactions: No Reported Reaction, Postoperative Nausea & Vomiting (PONV) Past Psychological History: No Psychological Hx Reported Smoking Status: Never smoker Past Alcohol Use History: None Reported Past Drug Use History: None Reported - Past Family History Father History Unknown: Yes Family Medical History: Congestive Heart Failure (CHF), Hypertension Additional Family Medical History / Comment(s): Laryngeal cancer General Exam Limitations: altered mental status, physical limitation General appearance: alert, in no apparent distress, anxious, in distress Head exam: Present: atraumatic, normocephalic, normal inspection Eye exam: Present: normal appearance, PERRL, EOMI. Absent: scleral icterus, conjunctival injection, periorbital swelling ENT exam: Present: normal exam, mucous membranes dry Neck exam: Present: normal inspection. Absent: tenderness, meningismus, lymphadenopathy Respiratory exam: Present: normal lung sounds bilaterally. Absent: respiratory distress, wheezes, rales, rhonchi, stridor Cardiovascular Exam: Present: normal rhythm, tachycardia, normal heart sounds. Absent: systolic murmur, diastolic murmur, rubs, gallop, clicks GI/Abdominal exam: Present: soft, normal bowel sounds. Absent: distended, tenderness, guarding, rebound, rigid Extremities exam: Present: normal inspection, full ROM, normal capillary refill. Absent: tenderness, pedal edema, joint swelling, calf tenderness Back exam: Present: normal inspection Neurological exam: Present: alert, oriented X3, CN II-XII intact Psychiatric exam: Present: normal affect, normal mood Skin exam: Present: warm, dry, intact, normal color. Absent: rash Course Vital Signs 03/15/22 03/15/22 03/15/22 05:31 06:05 06:15 Temperature 98.1 F 98.9 F 98.7 F Pulse Rate 101 H 106 H 105 H Respiratory 20 20 18 Rate Blood Pressure 76/53 132/88 137/73 O2 Sat by Pulse 99 100 99 Oximetry 03/15/22 03/15/22 03/15/22 06:17 06:21 06:31 Temperature 98.8 F 98.9 F 98.9 F Pulse Rate 98 99 90 Respiratory 20 18 18 Rate Blood Pressure 121/78 121/84 124/87 O2 Sat by Pulse 96 99 100 Oximetry - Reevaluation(s) Reevaluation #1: 03/15/22 Reevaluation #2: 03/15/22 Reevaluation #3: 03/15/22 Medical Decision Making - Lab Data Result diagrams: 03/16/22 07:33 03/16/22 07:33 Lab Results 03/15/22 03/15/22 03/15/22 Range/Units 05:41 05:45 05:45 WBC 19.5 H (3.8-10.6) k/uL RBC 4.80 (3.80-5.40) m/uL Hgb 12.1 (11.4-16.0) gm/dL Hct 39.4 (34.0-46.0) % MCV 81.9 (80.0-100.0) fL MCH 25.1 (25.0-35.0) pg MCHC 30.6 L (31.0-37.0) g/dL RDW 14.3 (11.5-15.5) % Plt Count 367 (150-450) k/uL MPV 7.5 Neutrophils % 79 % Lymphocytes % 17 % Monocytes % 3 % Eosinophils % 0 % Basophils % 0 % Neutrophils # 15.4 H (1.3-7.7) k/uL Lymphocytes # 3.3 (1.0-4.8) k/uL Monocytes # 0.5 (0-1.0) k/uL Eosinophils # 0.0 (0-0.7) k/uL Basophils # 0.1 (0-0.2) k/uL PT 10.7 (9.0-12.0) sec INR 1.0 (<1.2) APTT 21.4 L (22.0-30.0) sec Sodium (137-145) mmol/L Potassium (3.5-5.1) mmol/L Chloride (98-107) mmol/L Carbon Dioxide (22-30) mmol/L Anion Gap mmol/L BUN (7-17) mg/dL Creatinine (0.52-1.04) mg/dL Est GFR (CKD-EPI)AfAm (>60 ml/min/1.73 sqM) Est GFR (CKD-EPI)NonAf (>60 ml/min/1.73 sqM) Glucose (74-99) mg/dL POC Glucose (mg/dL) 225 H (75-99) mg/dL POC Glu Veneer Matcher ID Javier Bedolla Calcium (8.4-10.2) mg/dL Phosphorus (2.5-4.5) mg/dL Magnesium (1.6-2.3) mg/dL Total Bilirubin (0.2-1.3) mg/dL AST (14-36) U/L ALT (4-34) U/L Alkaline Phosphatase (38-126) U/L Total Protein (6.3-8.2) g/dL Albumin (3.5-5.0) g/dL Blood Type Blood Type Recheck Bld Type Recheck Status Antibody Screen Crossmatch Spec Expiration Date 03/15/22 03/15/22 03/15/22 Range/Units 05:45 05:45 06:48 WBC (3.8-10.6) k/uL RBC (3.80-5.40) m/uL Hgb (11.4-16.0) gm/dL Hct (34.0-46.0) % MCV (80.0-100.0) fL MCH (25.0-35.0) pg MCHC (31.0-37.0) g/dL RDW (11.5-15.5) % Plt Count (150-450) k/uL MPV Neutrophils % % Lymphocytes % % Monocytes % % Eosinophils % % Basophils % % Neutrophils # (1.3-7.7) k/uL Lymphocytes # (1.0-4.8) k/uL Monocytes # (0-1.0) k/uL Eosinophils # (0-0.7) k/uL Basophils # (0-0.2) k/uL PT (9.0-12.0) sec INR (<1.2) APTT (22.0-30.0) sec Sodium 133 L (137-145) mmol/L Potassium 4.3 (3.5-5.1) mmol/L Chloride 105 (98-107) mmol/L Carbon Dioxide 21 L (22-30) mmol/L Anion Gap 7 mmol/L BUN 12 (7-17) mg/dL Creatinine 0.55 (0.52-1.04) mg/dL Est GFR (CKD-EPI)AfAm >90 (>60 ml/min/1.73 sqM) Est GFR (CKD-EPI)NonAf >90 (>60 ml/min/1.73 sqM) Glucose 223 H (74-99) mg/dL POC Glucose (mg/dL) 197 H (75-99) mg/dL POC Glu Veneer Matcher MARQUIS Merry Sosa Calcium 9.2 (8.4-10.2) mg/dL Phosphorus 4.4 (2.5-4.5) mg/dL Magnesium 1.7 (1.6-2.3) mg/dL Total Bilirubin 0.3 (0.2-1.3) mg/dL AST 19 (14-36) U/L ALT 15 (4-34) U/L Alkaline Phosphatase 55 (38-126) U/L Total Protein 6.5 (6.3-8.2) g/dL Albumin 3.8 (3.5-5.0) g/dL Blood Type B Positive Blood Type Recheck B Pos Bld Type Recheck Status No Antibody Screen NEGATIVE Crossmatch See Detail Spec Expiration Date 03/18/2022 - 3872 - EKG Data -: EKG Interpreted by Me (EKG shows sinus tach 111 MO 108 QRS 85 QTc 384) Critical Care Time Critical Care Time: Yes Total Critical Care Time: 31 Disposition Clinical Impression: Abdominal pain, , Ectopic , Hypotension, Acute abdomen Disposition: ADMITTED IP TO THIS [facility] Condition: Serious Is patient prescribed a controlled substance at d/c from ED?: No
--- NOTE | 2022-03-15 06:09 | CT ---
EXAMINATION TYPE: CT abdomen pelvis w con DATE OF EXAM: 03/15/2022 HISTORY: RLQ pain/ ectopic diagnosed 5 weeks along at another facility yesterday CT DLP: 1847mGycm Automated Exposure Control for Dose Reduction was Utilized. CONTRAST: CT scan of the abdomen and pelvis is performed without oral and with IV Contrast, patient injected wi th 100 ml mL of Isovue 300. COMPARISON: None. FINDINGS: LUNG BASES: No significant abnormality is appreciated. LIVER/GB: Fluid surrounds the liver along the right aspect. PANCREAS: No significant abnormality is seen. SPLEEN: Fluid surrounds the spleen and along the periphery. ADRENALS: No significant abnormality is seen. KIDNEYS: No significant abnormality is seen. BOWEL: No significant abnormality is seen. UTERUS/ADNEXA: Poor visualization of the uterus due to heterogeneous hyperdense fluid filling the pel vis extending into the paracolic gutters bilaterally up to the level of the diaphragm surrounding the liver and spleen. Right adnexa has 1.4 cm rim hyperdense lesion axial image 68 could reflect corpus luteal cyst in right ovary. No free air. LYMPH NODES: No greater than 1cm abdominal or pelvic lymph nodes are appreciated. OSSEOUS STRUCTURES: No significant abnormality is seen. OTHER: No significant additional abnormality is seen. IMPRESSION: Large amount of nonsimple fluid suspected blood product in the pelvis with smaller amount of nonsimple fluid or hemorrhage extending into the bilateral paracolic gutters throughout the abdom en. Correlate clinically and with hemoglobin values. No free air identified.
[2022-03-15 06:18] LABS: ALT 15 U/L (4-34); AST 19 U/L (14-36); African American GFR (CKD) >90 (>60 ml/min/1.73 sqM); Albumin 3.8 g/dL (3.5-5.0); Alkaline Phosphatase 55 U/L (38-126); Anion Gap 7 mmol/L; Blood Urea Nitrogen 12 mg/dL (7-17); Calcium 9.2 mg/dL (8.4-10.2); Carbon Dioxide 21 mmol/L (22-30); Chloride 105 mmol/L (98-107); Glucose 223 mg/dL (74-99); Magnesium 1.7 mg/dL (1.6-2.3); Non-African American GFR(CKD) >90 (>60 ml/min/1.73 sqM); Phosphorus 4.4 mg/dL (2.5-4.5); Potassium 4.3 mmol/L (3.5-5.1); Sodium 133 mmol/L (137-145); Total Bilirubin 0.3 mg/dL (0.2-1.3); Total Protein 6.5 g/dL (6.3-8.2)
--- NOTE | 2022-03-15 06:27 | P.HPOB ---
History of Present Illness H&P Date: 03/15/22 Chief Complaint: abdominal pain, ectopic 36 year old presented to ER today with abdominal and shoulder pain, diaphoresis, pale and shortness of breath. She has had some bleeding in the last week with her but bhcg was rising. She went to [facility] yesterday where she was diagnosed with an ectopic and told to follow up with me today. She had more pain overnight and came to the ER here. Review of Systems All systems: negative Constitutional: Denies chills, Denies fever Eyes: denies blurred vision, denies pain Ears, nose, mouth and throat: Denies headache, Denies sore throat Cardiovascular: Denies chest pain, Denies shortness of breath Respiratory: Denies cough Gastrointestinal: Denies abdominal pain, Denies diarrhea, Denies nausea, Denies vomiting Genitourinary: Denies dysuria, Denies hematuria Musculoskeletal: Denies myalgias Integumentary: Denies pruritus, Denies rash Neurological: Denies numbness, Denies weakness Psychiatric: Denies anxiety, Denies depression Endocrine: Denies fatigue, Denies weight change Past Medical History Past Medical History: Diabetes Mellitus 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, PCOS History of Any Multi-Drug Resistant Organisms: None Reported Past Surgical History: Section Additional Past Surgical History / Comment(s): LEEP, D&C, exploratory laparotomy 2 in 2012 and 2015, laparoscopic right ovarian cystectomy-2012, hysteroscopic removal of uterine septum Past Anesthesia/Blood Transfusion Reactions: No Reported Reaction, Postoperative Nausea & Vomiting (PONV) Past Psychological History: No Psychological Hx Reported Smoking Status: Never smoker Past Alcohol Use History: None Reported Past Drug Use History: None Reported - Past Family History Father History Unknown: Yes Family Medical History: Congestive Heart Failure (CHF), Hypertension Additional Family Medical History / Comment(s): Laryngeal cancer Medications and Allergies Home Medications Medication Instructions Recorded Confirmed Type Insulin NPH [humuLIN N] 52 units SQ HS 11/15/19 02/06/21 History Pnv No.95/Ferrous Fum/Folic AC 1 each PO DAILY 11/15/19 02/06/21 History [ Multivitamin Tablet] INSULIN LISPRO (HumaLOG) [humaLOG] 26 units SQ W/SUPPER 02/06/21 02/06/21 History HYDROcodone/APAP 7.5-325MG [[place] 1 tab PO Q4-6H PRN #18 tab 02/08/21 Rx 7.5-325] Ibuprofen [Motrin] 600 mg PO Q6HR PRN #30 tab 02/08/21 Rx Allergies Allergy/AdvReac Type Severity Reaction Status Date / Time alcohol Allergy Rash/Hives Verified 02/06/21 13:52 [From Mastisol Adhesive] azithromycin Allergy Rash/Hives Verified 02/06/21 13:51 gum mastic Allergy Rash/Hives Verified 02/06/21 13:52 [From Mastisol Adhesive] methyl salicylate Allergy Rash/Hives Verified 02/06/21 13:52 [From Mastisol Adhesive] storax Allergy Rash/Hives Verified 02/06/21 13:52 [From Mastisol Adhesive] Exam Osteopathic Statement: *. No significant issues noted on an osteopathic structural exam other than those noted in the History and Physical/Consult. Vital Signs Temp Pulse Resp BP Pulse Ox 03/15/22 06:21 98.9 F 99 18 121/84 99 03/15/22 06:17 98.8 F 98 20 121/78 96 03/15/22 06:15 98.7 F 105 H 18 137/73 99 03/15/22 06:05 98.9 F 106 H 20 132/88 100 03/15/22 05:31 98.1 F 101 H 20 76/53 99 Intake and Output 03/14/22 03/14/22 03/15/22 14:59 22:59 06:59 Intake Total 310 Balance 310 Intake: Blood Product 310 Rc As-1 Unit 310 [id number] Rc Pheresis As-3 Unit 0 [id number] Other: Weight 108.862 kg Heart: Tachycardic but regular Lungs: Clear to auscultation bilaterally Abdomen: Soft, mildly distended, tender to palpation Extremities: Negative Homans sign Results Result Diagrams: 03/15/22 05:45 03/15/22 05:45 Abnormal Lab Results - Last 24 Hours (Table) 03/15/22 03/15/22 03/15/22 Range/Units 05:41 05:45 05:45 WBC 19.5 H (3.8-10.6) k/uL MCHC 30.6 L (31.0-37.0) g/dL Neutrophils # 15.4 H (1.3-7.7) k/uL Sodium 133 L (137-145) mmol/L Carbon Dioxide 21 L (22-30) mmol/L Glucose 223 H (74-99) mg/dL POC Glucose (mg/dL) 225 H (75-99) mg/dL Assessment and Plan (1) Diabetes Status: Acute Code(s): E11.9 - TYPE 2 DIABETES MELLITUS WITHOUT COMPLICATIONS SNOMED Code(s): 06429602 (2) Ectopic Status: Acute Code(s): O00.90 - UNSPECIFIED ECTOPIC WITHOUT INTRAUTERINE SNOMED Code(s): 93059329 (3) Hypotension Status: Acute Code(s): I95.9 - HYPOTENSION, UNSPECIFIED SNOMED Code(s): 14872074 (4) Acute abdomen Status: Acute Code(s): R10.0 - ACUTE ABDOMEN SNOMED Code(s): 3044219 Plan: 1. exploratory laparotomy with possible removal of fallopian tube
[2022-03-15 06:32] LABS: Prothrombin Time 10.7 sec (9.0-12.0)
[2022-03-15] MEDS ORDERED: ONDANSETRON 4 MG/2 ML VIAL ONE (06:45)
[2022-03-15] MEDS ORDERED: SODIUM CHLORIDE 0.9% 1,000 ML IV ONE (06:48)
[2022-03-15] MEDS ORDERED: ONDANSETRON 4 MG/2 ML VIAL IVP ONE (06:49)
[2022-03-15] MEDS ORDERED: DEXAMETHASONE SOD PHOSPHATE 4 MG/ML 1 ML VIAL IVP ONE (06:49)
[2022-03-15] MEDS ORDERED: FAMOTIDINE 20 MG/2 ML VIAL IVP ONE (06:49)
[2022-03-15 06:50] LABS: Glucose,Whole Blood 197 mg/dL (75-99)
[2022-03-15 06:51] LABS: Partial Thromboplastin Time 21.4 sec (22.0-30.0)
[2022-03-15] MEDS ORDERED: INSULIN ASPART (NovoLOG) 100 UNIT/ML VIAL SQ ONE (06:53)
[2022-03-15] MEDS ORDERED: NALOXONE 0.4 MG/ML 1 ML VIAL IV PRN ×2 (06:54→08:02)
[2022-03-15] MEDS ORDERED: LORazepam 2 MG/ML INJ IV PRN (06:54)
[2022-03-15] MEDS ORDERED: ONDANSETRON 4 MG/2 ML VIAL IVP PRN ×2 (06:54→08:02)
[2022-03-15] MEDS ORDERED: HYDROmorphone 1 MG/ML 1 ML SYRINGE IVP PRN (06:54)
[2022-03-15] MEDS ORDERED: NEOSTIGMINE 1 MG/ML 10 ML VIAL ONE (07:09)
[2022-03-15] MEDS ORDERED: GLYCOPYRROLATE 0.2 MG/ML 2 ML VIAL ONE (07:09)
[2022-03-15] MEDS ORDERED: PROPOFOL 10 MG/ML 20 ML VIAL IV ONE (07:09)
[2022-03-15] MEDS ORDERED: fentaNYL (PF) 50 MCG/ML 2 ML AMP ONE (07:09)
[2022-03-15] MEDS ORDERED: MIDAZOLAM 2 MG/2 ML VIAL ONE (07:09)
[2022-03-15] MEDS ORDERED: ceFAZolin 1,000 MG VIAL ONE (07:09)
[2022-03-15] MEDS ORDERED: ROCURONIUM 10 MG/ML (5 ML VIAL) IV ONE (07:09)
[2022-03-15] MEDS ORDERED: HYDROmorphone (PF) 1 MG/ML ONE (07:09)
[2022-03-15] MEDS ORDERED: LIDOCAINE 2% INJ 20 MG/ML (2 ML VIAL) ONE (07:09)
[2022-03-15] MEDS ORDERED: SUCCINYLCHOLINE CHLORIDE 100 MG/5 ML SYR IV ONE (07:09)
[2022-03-15] MEDS ORDERED: SODIUM CHLORIDE 0.9% 50 ML with ceFAZolin 2,000 MG IV ONE ×2 (07:30)
[2022-03-15] MEDS ORDERED: LACTATED RINGERS 1,000 ML IV ONE ×2 (07:55→09:27)
[2022-03-15] MEDS ORDERED: diphenhydrAMINE 50 MG/ML 1 ML VIAL IVP PRN ×2 (08:02)
[2022-03-15] MEDS ORDERED: diphenhydrAMINE 50 MG CAP PO PRN (08:02)
[2022-03-15] MEDS ORDERED: METOCLOPRAMIDE 5 MG/ML 2 ML VIAL IVP PRN (08:02)
[2022-03-15] MEDS ORDERED: ZOLPIDEM 5 MG TAB PO PRN (08:02)
[2022-03-15] MEDS ORDERED: diphenhydrAMINE 25 MG CAP PO PRN (08:02)
[2022-03-15 08:18] LABS: Glucose,Whole Blood 142 mg/dL (75-99)
--- NOTE | 2022-03-15 08:39 | P.OP ---
Date of Procedure: 03/15/22 Preoperative Diagnosis: 1. Ectopic Postoperative Diagnosis: 1. Ruptured ectopic from the right fallopian tube 2. Hemoperitoneum Procedure(s) Performed: Exploratory laparotomy with evacuation of hemoperitoneum, removal of ectopic and right salpingectomy Anesthesia: DEANDRE Surgeon: Leanne Peacock Assistant Art Director #1: Sabino Haji Estimated Blood Loss (ml): 900 IV fluids (ml): 1,100 Urine output (ml): 200 Pathology: other (Right fallopian tube segment) Condition: stable Disposition: PACU Operative Findings: Ruptured right fallopian tube actively bleeding. Hemoperitoneum Description of Procedure: Patient was taken to the operating room where general anesthesia was found be adequate. She was prepped and draped in normal sterile fashion in dorsal supine position with a leftward tilt. Pfannenstiel skin incision was made the scalpel and carried through to the underlying layer of fascia with the scalpel. Fascia was incised in midline and carried bilaterally with the Rebolledo scissors. The superior aspect of the fascial incision was grasped with Celia clamps elevated and the underlying rectus muscles dissected off with the Rebolledo's. Attention was then turned to inferior aspect of same incision which in a similar fashion was grasped tented up and the underlying rectus muscles dissected off with the Rebolledo's. The rectus muscles were the midline and the peritoneum was identified tented up and entered sharply with the scalpel. The incision was extended superiorly and inferiorly with good visualization of the bladder. The suction was introduced into the abdomen to remove blood and clot. Self- retaining retractor was then placed and the bowels were packed away with moist laparotomy sponges. The left fallopian tube and ovary looked normal the uterus appeared normal the right fallopian tube was bleeding from a rupture in the ampullar portion. This was grasped with a Watson and Edd clamp was used to clamp the mesosalpinx. The Rebolledo scissors were used to amputate the right fallopian tube and was suture ligated. Hemostasis was assured. The pelvis was copiously irrigated. All instruments removed from the abdomen and pelvis. Peritoneum was reapproximated with 2-0 Vicryl in a running fashion fashion was reapproximated with 0 Vicryl in a running fashion subcu tissues closed with 3-0 Vicryl in running fashion and skin was closed maite. Patient tolerated procedure well. Sponge and instrument counts correct 2. She was taken to recovery in stable condition.
[2022-03-15] MEDS ORDERED: HYDROmorphone 0.5 MG/0.5 ML SYRINGE IVP ONE (08:47)
[2022-03-15 09:13] LABS: HCT 38.1 % (34.0-46.0); HGB 12.2 gm/dL (11.4-16.0); Hypochromasia Slight; MCH 27.2 pg (25.0-35.0); Mean Platelet Volume 7.3; Platelet Count 211 k/uL (150-450); RBC 4.48 m/uL (3.80-5.40); RDW 14.7 % (11.5-15.5); WBC 14.6 k/uL (3.8-10.6)
[2022-03-15] MEDS: KETOROLAC 15 MG/ML 1 ML VIAL IVP SCH (11:41)
[2022-03-15 11:57] LABS: Glucose,Whole Blood 154 mg/dL (75-99)
[2022-03-15] MEDS: ACETAMINOPHEN TAB 500 MG TAB PO SCH (12:54)
[2022-03-15] MEDS: LACTATED RINGERS 1,000 ML IV SCH ×2 (13:23→21:30)
[2022-03-15] MEDS: SIMETHICONE 80 MG CHEWABLE PO PRN ×2 (15:07→20:19)
--- NOTE | 2022-03-15 15:16 | P.CONS ---
History of Present Illness - Reason for Consult Consult date: 03/15/22 DM Requesting physician: Sabino Haji - Chief Complaint abdominal pain - History of Present Illness Patient is a 36-year-old female who presented to the emergency department with complaints of abdominal and shoulder pain. She had been seen and diagnosed with ectopic . She is admitted by [employer]. She underwent an exploratory laparoscopy with evacuation of hemoperitoneum, removal of ectopic with right salpingectomy on 03/15. We were consulted for diabetes. Patient seen and examined at bedside. She complains of diffuse abdominal pain that radiates to her right shoulder. She denies nausea, diarrhea, Feeling a little short of breath due to the pain. No chest pain, not light headed. She received a formal diagnosis of DM in Sep after she had a viral illness and then didn't feel good for 1 month. She initially followed with her PCP and then Dr. White. She had to come of [place] due to trying to conceive and then being and her DM has been difficult to manage with high noctural sugars. Most recent regiment: Levemir 60 in AM, Novolog 10 AM, Lunch Aug 70/30 40 units with dinner Current A1C 7.4... Previous 11 on diagnosis Has Dexcom at home. Recent BV and yeast infection diagnosed by her PCP. She had spotting for 1 week and was placed on 3 days of progestrone due to the spotting. Paternal Grandmother DM in her 80s. Pertinent positives and negatives as discussed in HPI, a complete review of systems was performed and all other systems are negative. General: non toxic, mild distress due to pain, appears at stated age Derm: warm, dry Head: atraumatic, normocephalic, symmetric Eyes: EOMI, no lid lag, anicteric sclera, pupils equal round reactive to light ENT: Nose and ears atraumatic, no thrush, no pharyngeal erythema Neck: No thyromegaly, no cervical lymphadenopathy, trachea midline, supple Mouth: no lip lesion, mucus membranes dry Cardiovascular: S1S2 reg, no murmur, positive posterior tibial pulse bilateral, no edema, capillary refill less than 2 seconds Lungs: clear to ascultation bilateral, no ronchi, no rales, no wheeze, no accessory muscle use Abdominal: soft, +tender to palpation diffusely, no guarding, no appreciable organomegaly, normal bowel sounds Ext: no gross muscle atrophy, muscle strength muscle strength 5 out of 5 in all 4 extremities, no contractures Neuro: CN II-XI grossly intact, light touch intact all 4 extremities, finger to nose within normal limits, Psych: Alert, oriented, appropriate affect Assessment/plan: DM 2, insulin requiring -no appetite and BS 140s - SSI + novolog fixed dose, small amount of NPH this evening - if BS higher in AM and appetite returned anticipate resuming levemir, fixed dose, and 70/[address] Thomason for endocrinology - follow BS closely Leukocytosis, suspect reactive - follow CBC Hyponatremia - recheck in AM - IV fluids Ectopic s/p ex-lap wit evacuation of hemoperitoneum, removal of e ctopic with right salpingectomy on 03/15 -Management per [employer] Morbid obesity with BMI 42.5 - continue with structured outpatient weight loss. Thank you for allowing us to participate in the care of this pleasant patient. Do not hesitate to contact us with questions. Someone can be reached from the [facility] hospitalist group all hours of the day at [phone] or via Viyet. Past Medical History Past Medical History: Diabetes Mellitus 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, PCOS History of Any Multi-Drug Resistant Organisms: None Reported Past Surgical History: Section Additional Past Surgical History / Comment(s): LEEP, D&C, exploratory laparotomy 2 in 2012 and 2015, laparoscopic right ovarian cystectomy-2012, hysteroscopic removal of uterine septum Past Anesthesia/Blood Transfusion Reactions: No Reported Reaction, Postoperative Nausea & Vomiting (PONV) Past Psychological History: No Psychological Hx Reported Smoking Status: Never smoker Past Alcohol Use History: None Reported Past Drug Use History: None Reported - Past Family History Father History Unknown: Yes Family Medical History: Congestive Heart Failure (CHF), Hypertension Additional Family Medical History / Comment(s): Laryngeal cancer Medications and Allergies Home Medications Medication Instructions Recorded Confirmed Type Insulin NPH [humuLIN N] 52 units SQ HS 11/15/19 03/15/22 History Pnv No.95/Ferrous Fum/Folic AC 1 each PO DAILY 11/15/19 03/15/22 History [ Multivitamin Tablet] INSULIN LISPRO (HumaLOG) [humaLOG] 26 units SQ W/SUPPER 02/06/21 03/15/22 History HYDROcodone/APAP 7.5-325MG [[place] 1 tab PO Q4-6H PRN #18 tab 02/08/21 03/15/22 Rx 7.5-325] Ibuprofen [Motrin] 600 mg PO Q6HR PRN #30 tab 02/08/21 03/15/22 Rx Allergies Allergy/AdvReac Type Severity Reaction Status Date / Time alcohol Allergy Rash/Hives Verified 02/06/21 13:52 [From Mastisol Adhesive] azithromycin Allergy Rash/Hives Verified 02/06/21 13:51 gum mastic Allergy Rash/Hives Verified 02/06/21 13:52 [From Mastisol Adhesive] methyl salicylate Allergy Rash/Hives Verified 02/06/21 13:52 [From Mastisol Adhesive] storax Allergy Rash/Hives Verified 02/06/21 13:52 [From Mastisol Adhesive] Physical Exam Osteopathic Statement: *. No significant issues noted on an osteopathic structural exam other than those noted in the History and Physical/Consult. Vitals: Vital Signs Temp Pulse Pulse Pulse Resp BP BP 03/15/22 12:46 122 H 16 114/73 03/15/22 11:59 119 H 16 109/63 03/15/22 11:24 111 H 16 113/76 03/15/22 11:09 122 H 16 111/74 03/15/22 10:54 120 H 16 102/70 03/15/22 10:44 99.5 F 106 H 16 105/72 03/15/22 10:25 99.5 F 107 H 16 105/72 03/15/22 09:51 84 16 108/64 03/15/22 09:40 88 16 113/64 03/15/22 09:25 85 16 113/64 03/15/22 09:10 81 119/64 03/15/22 09:01 84 14 119/64 03/15/22 08:51 64 120/73 03/15/22 08:36 77 18 110/60 03/15/22 08:21 66 107/67 03/15/22 08:06 98.6 F 114 H 16 138/93 03/15/22 06:57 92 16 117/56 03/15/22 06:40 97.8 F 107 H 18 114/57 03/15/22 06:31 98.9 F 90 18 124/87 03/15/22 06:21 98.9 F 99 18 121/84 03/15/22 06:17 98.8 F 98 20 121/78 03/15/22 06:15 98.7 F 105 H 18 137/73 03/15/22 06:05 98.9 F 106 H 20 132/88 03/15/22 05:31 98.1 F 101 H 20 76/53 Pulse Ox 03/15/22 12:46 99 03/15/22 11:59 98 03/15/22 11:24 95 03/15/22 11:09 03/15/22 10:54 03/15/22 10:44 03/15/22 10:25 03/15/22 09:51 96 03/15/22 09:40 95 03/15/22 09:25 98 03/15/22 09:10 98 03/15/22 09:01 100 03/15/22 08:51 100 03/15/22 08:36 100 03/15/22 08:21 100 03/15/22 08:06 100 03/15/22 06:57 100 03/15/22 06:40 100 03/15/22 06:31 100 03/15/22 06:21 99 03/15/22 06:17 96 03/15/22 06:15 99 03/15/22 06:05 100 03/15/22 05:31 99 Intake and Output 03/14/22 03/15/22 03/15/22 22:59 06:59 14:59 Intake Total 900 1150 Output Total 1400 Balance 900 -250 Intake: IV 200 1150 Blood Product 700 Rc As-1 Unit 310 [id number] Rc Pheresis As-3 Unit 140 [id number] Output: Urine 500 Estimated Blood Loss 900 Other: Weight 108.862 kg 108.862 kg Results CBC & Chem 7: 03/15/22 08:40 03/15/22 05:45 Labs: Abnormal Lab Results - Last 24 Hours (Table) 03/15/22 03/15/22 03/15/22 Range/Units 05:41 05:45 05:45 WBC 19.5 H (3.8-10.6) k/uL MCHC 30.6 L (31.0-37.0) g/dL Neutrophils # 15.4 H (1.3-7.7) k/uL APTT 21.4 L (22.0-30.0) sec Sodium (137-145) mmol/L Carbon Dioxide (22-30) mmol/L Glucose (74-99) mg/dL POC Glucose (mg/dL) 225 H (75-99) mg/dL Crossmatch 03/15/22 03/15/22 03/15/22 Range/Units 05:45 05:45 06:48 WBC (3.8-10.6) k/uL MCHC (31.0-37.0) g/dL Neutrophils # (1.3-7.7) k/uL APTT (22.0-30.0) sec Sodium 133 L (137-145) mmol/L Carbon Dioxide 21 L (22-30) mmol/L Glucose 223 H (74-99) mg/dL POC Glucose (mg/dL) 197 H (75-99) mg/dL Crossmatch See Detail 03/15/22 03/15/22 03/15/22 Range/Units 08:16 08:40 11:56 WBC 14.6 H (3.8-10.6) k/uL MCHC (31.0-37.0) g/dL Neutrophils # (1.3-7.7) k/uL APTT (22.0-30.0) sec Sodium (137-145) mmol/L Carbon Dioxide (22-30) mmol/L Glucose (74-99) mg/dL POC Glucose (mg/dL) 142 H 154 H (75-99) mg/dL Crossmatch
[2022-03-15 17:29] LABS: Glucose,Whole Blood 142 mg/dL (75-99)
[2022-03-15] MEDS: INSULIN ASPART (NovoLOG) 100 UNIT/ML VIAL SQ SCH ×3 (17:54→23:00)
[2022-03-15] MEDS ORDERED: INSULIN NPH 300 UNIT/3 ML VIAL SQ ONE (18:00)
[2022-03-15] MEDS ORDERED: HYDROmorphone PCA 10 MG/50 ML BAG IV PRN (19:09)
[2022-03-15 22:00] LABS: Glucose,Whole Blood 147 mg/dL (75-99)
[2022-03-15] MEDS: SENNOSIDES-DOCUSATE SODIUM 1 EACH TAB PO SCH (22:57)
[2022-03-16] MEDS: SIMETHICONE 80 MG CHEWABLE PO PRN ×4 (03:04→19:51)
[2022-03-16 03:09] LABS: Glucose,Whole Blood 133 mg/dL (75-99)
[2022-03-16] MEDS: INSULIN ASPART (NovoLOG) 100 UNIT/ML VIAL SQ SCH ×7 (03:14→22:10)
[2022-03-16] MEDS: ACETAMINOPHEN TAB 500 MG TAB PO SCH ×6 (03:22→22:20)
[2022-03-16] MEDS: SODIUM CHLORIDE 0.9% 1,000 ML IV SCH ×2 (03:23→03:30)
[2022-03-16] MEDS: KETOROLAC 15 MG/ML 1 ML VIAL IVP SCH ×2 (03:29→06:00)
[2022-03-16 07:37] LABS: Glucose,Whole Blood 122 mg/dL (75-99)
[2022-03-16] MEDS: LACTATED RINGERS 1,000 ML IV SCH ×2 (07:52→09:20)
[2022-03-16] MEDS: SENNOSIDES-DOCUSATE SODIUM 1 EACH TAB PO SCH ×2 (07:57→19:51)
[2022-03-16] MEDS: INSULIN DETEMIR (LEVEMIR) 100 UNIT/ML SYR SQ SCH (07:58)
[2022-03-16 08:10] LABS: Basophils % (A) 0 %; Eosinophils % (A) 0 %; HCT 32.1 % (34.0-46.0); HGB 10.4 gm/dL (11.4-16.0); Hypochromasia Slight; Lymphocytes # (A) 2.4 k/uL (1.0-4.8); Lymphocytes % (A) 32 %; MCH 27.1 pg (25.0-35.0); MCHC 32.3 g/dL (31.0-37.0); MCV 83.8 fL (80.0-100.0); Mean Platelet Volume 7.1; Monocytes # (A) 0.4 k/uL (0-1.0); Monocytes % (A) 5 %; Neutrophils # (A) 4.6 k/uL (1.3-7.7); Neutrophils % (A) 61 %; Platelet Count 200 k/uL (150-450); RBC 3.83 m/uL (3.80-5.40); WBC 7.6 k/uL (3.8-10.6)
--- NOTE | 2022-03-16 08:14 | P.PN ---
Progress Note - Text Progress Note Date: 03/16/22 Status post exploratory laparotomy, right salpingectomy postoperative day #1 Patient's pain is well-controlled. Denies nausea, vomiting, chest pain, shortness breath or any calf pain. Vital signs stable Heart: Regular rhythm Lungs: Clearbilaterally Abdomen: Nondistended, soft, expected postop tenderness, incision is clean, dry, intact with maite. Assessment 1 status post exploratory laparotomy right salpingectomy postop day #1 Plan 1. Continue pain control with by mouth pain medications and increase ambulation
[2022-03-16 08:22] LABS: African American GFR (CKD) >90 (>60 ml/min/1.73 sqM); Anion Gap 4 mmol/L; Blood Urea Nitrogen 6 mg/dL (7-17); Calcium 8.1 mg/dL (8.4-10.2); Carbon Dioxide 27 mmol/L (22-30); Chloride 106 mmol/L (98-107); Glucose 118 mg/dL (74-99); Non-African American GFR(CKD) >90 (>60 ml/min/1.73 sqM); Potassium 4.1 mmol/L (3.5-5.1); Sodium 137 mmol/L (137-145)
[2022-03-16 12:24] LABS: Glucose,Whole Blood 128 mg/dL (75-99)
[2022-03-16] MEDS: IBUPROFEN 600 MG TAB PO SCH ×2 (12:26→18:40)
[2022-03-16 17:29] LABS: Glucose,Whole Blood 151 mg/dL (75-99)
--- NOTE | 2022-03-16 17:43 | P.PN ---
Subjective Progress Note Date: 03/16/22 (delayed charting seen at 1315) Principal diagnosis: abd pain Patient is a 36-year-old female who presented to the emergency department with complaints of abdominal and shoulder pain. She had been seen and diagnosed with ectopic . She is admitted by DEVELOPMENT LEAD. She underwent an exploratory laparoscopy with evacuation of hemoperitoneum, removal of ectopic with right salpingectomy on 03/15. We were consulted for diabetes. Patient seen and examined at bedside. Her pain is better than yesterday but still continues to have some right shoulder pain. Is passing gas but no bowel movement yet. She is impressed about how well her blood sugars are controlled. General: non toxic, no distress, appears at stated age, obese Derm: warm, dry Head: atraumatic, normocephalic, symmetric Eyes: EOMI, no lid lag, anicteric sclera Mouth: no lip lesion, mucus membranes moist Cardiovascular: S1S2 reg, no murmur, positive posterior tibial pulse bilateral, Lungs: CTA bilateral, no rhonchi, no rales , no accessory muscle use Abdominal: soft, +tender to palpation diffusely, no guarding, no appreciable organomegaly Ext: no gross muscle atrophy, no edema, no contractures Neuro: CN II-XI grossly intact, no focal neuro deficits Psych: Alert, oriented, appropriate affect Assessment/plan: DM 2, insulin requiring - SSI + novolog fixed dose, small amount of NPH this evening- 10 units - Levemir restarted at lowed dose 20 units - follow BS closely - I suspect that her BS were elevating due to stress from ectopic as she was having to make quick changes with Марина White. She will call him on discharge for further instructions. Acute blood loss anemia - anticipated - no indication for transfusion Leukocytosis, resolved Hyponatremia, resolved Ectopic s/p ex-lap wit evacuation of hemoperitoneum, removal of ectopic with right salpingectomy on 03/15 -Management per [facility]ELOPMENT LEAD Morbid obesity with BMI 42.5 - continue with structured outpatient weight loss. I would like to eval once more in AM to detemrined insulin plan for home as patient states likely discharge in AM. I have asked her to make sure that nurses call me to see her one more time before discharge if orders written in AM, if not will eval after lunchtime BS tomorrow. Thank you for allowing us to participate in the care of this pleasant patient. Do not hesitate to contact us with questions. Someone can be reached from the [facility] hospitalist group all hours of the day at [phone] or via perfect serve. Objective - Vital Signs Vital signs: Vital Signs Temp 98.2 F 03/16/22 15:38 Pulse 106 H 03/16/22 15:38 Resp 18 03/16/22 15:38 BP 112/79 03/16/22 15:38 Pulse Ox 99 03/16/22 15:38 FiO2 Intake & Output 03/15/22 03/16/22 03/16/22 18:59 06:59 18:59 Intake Total 1630 Output Total 5600 500 Balance -3970 -500 Weight 108.862 kg Intake: IV 1150 Oral 480 Output: Urine 4700 500 Uretheral (Trevizo) 2100 Estimated Blood Loss 900 Other: # Voids 1 1 - Labs CBC & Chem 7: 03/16/22 07:33 03/16/22 07:33 Labs: Abnormal Lab Results - Last 24 Hours (Table) 03/15/22 03/16/22 03/16/22 Range/Units 21:58 03:02 07:33 Hgb (11.4-16.0) gm/dL Hct (34.0-46.0) % BUN 6 L (7-17) mg/dL Creatinine 0.46 L (0.52-1.04) mg/dL Glucose 118 H (74-99) mg/dL POC Glucose (mg/dL) 147 H 133 H (75-99) mg/dL Calcium 8.1 L (8.4-10.2) mg/dL 03/16/22 03/16/22 03/16/22 Range/Units 07:33 07:36 12:23 Hgb 10.4 L (11.4-16.0) gm/dL Hct 32.1 L (34.0-46.0) % BUN (7-17) mg/dL Creatinine (0.52-1.04) mg/dL Glucose (74-99) mg/dL POC Glucose (mg/dL) 122 H 128 H (75-99) mg/dL Calcium (8.4-10.2) mg/dL 03/16/22 Range/Units 17:27 Hgb (11.4-16.0) gm/dL Hct (34.0-46.0) % BUN (7-17) mg/dL Creatinine (0.52-1.04) mg/dL Glucose (74-99) mg/dL POC Glucose (mg/dL) 151 H (75-99) mg/dL Calcium (8.4-10.2) mg/dL
[2022-03-16] MEDS ORDERED: INSULIN NPH 300 UNIT/3 ML VIAL SQ ONE (18:00)
[2022-03-16 21:54] LABS: Glucose,Whole Blood 106 mg/dL (75-99)
[2022-03-17 02:52] LABS: Glucose,Whole Blood 127 mg/dL (75-99)
[2022-03-17] MEDS: IBUPROFEN 600 MG TAB PO SCH ×2 (02:52→08:02)
[2022-03-17] MEDS: ACETAMINOPHEN TAB 500 MG TAB PO SCH ×2 (05:13→10:30)
[2022-03-17 08:14] LABS: Glucose,Whole Blood 136 mg/dL (75-99)
[2022-03-17] MEDS: INSULIN ASPART (NovoLOG) 100 UNIT/ML VIAL SQ SCH ×2 (08:14)
[2022-03-17 08:20] VITALS: BP 106/73; PULSE 119; RESP 18; TEMP 98.4
[2022-03-17] MEDS: SENNOSIDES-DOCUSATE SODIUM 1 EACH TAB PO SCH (08:20)
[2022-03-17] MEDS: INSULIN DETEMIR (LEVEMIR) 100 UNIT/ML SYR SQ SCH (08:29)
[2022-03-17] MEDS ORDERED: INSULIN DETEMIR (LEVEMIR) 100 UNIT/ML SYR SQ SCH (08:30)
--- NOTE | 2022-03-17 08:30 | P.DS ---
Providers Date of admission: 03/15/22 06:54 Expected date of discharge: 03/17/22 Attending physician: Leanne Peacock Consults: 03/15/22 11:23 Consult Physician Stat Consulting Provider: Nona Gutiérrez Consult Reason/Comments: diabetes mangement Do you want consulting provider notified?: Yes Primary care physician: Belia Moyer - Discharge Diagnosis(es) (1) Diabetes Current Visit: No Status: Acute (2) Status post exploratory laparotomy Current Visit: Yes Status: Acute Hospital Course: Patient presented with an acute abdomen and a ruptured ectopic . She underwent exploratory laparotomy and removal of the right fallopian tube. She did receive 2 units of packed red blood cells just prior to and during the surgery. Postoperatively her pain is well-controlled. She denies nausea, vomiting, chest pain, shortness of breath or any calf pain. We did consult medicine for her diabetes. The doctor would like to see the patient 1 more time this morning prior to discharge to determine an at-home insulin dose. I know patient does have a primary care physician and follows up with Dr. White, orthotist, as well. Patient will follow-up with me in one week. Patient Condition at Discharge: Serious Plan - Discharge Summary Discharge Rx Participant: Yes New Discharge Prescriptions: New oxyCODONE HCL [OxyIR] 5 mg PO Q4HR PRN #12 tab PRN Reason: Pain Scale 4 - 6 Continue Ibuprofen [Motrin] 600 mg PO Q6HR PRN #30 tab PRN Reason: Mild Pain Or Fever >= 100.5 No Action Pnv No.95/Ferrous Fum/Folic AC [ Multivitamin Tablet] 1 each PO DAILY Insulin NPH [humuLIN N] 52 units SQ HS INSULIN LISPRO (HumaLOG) [humaLOG] 26 units SQ W/SUPPER HYDROcodone/APAP 7.5-325MG [[place] 7.5-325] 1 tab PO Q4-6H PRN #18 tab PRN Reason: Pain Discharge Medication List Insulin NPH [humuLIN N] 52 units SQ HS 11/15/19 [History] Pnv No.95/Ferrous Fum/Folic AC [ Multivitamin Tablet] 1 each PO DAILY 11/15/19 [History] INSULIN LISPRO (HumaLOG) [humaLOG] 26 units SQ W/SUPPER 02/06/21 [History] HYDROcodone/APAP 7.5-325MG [[place] 7.5-325] 1 tab PO Q4-6H PRN #18 tab 02/08/21 [Rx] Ibuprofen [Motrin] 600 mg PO Q6HR PRN #30 tab 03/17/22 [Rx] oxyCODONE HCL [OxyIR] 5 mg PO Q4HR PRN #12 tab 03/17/22 [Rx] Follow up Appointment(s)/Referral(s): Fabiola Reeves NPC [REFERRING] - 1-2 days Discharge Disposition: HOME SELF-CARE
--- NOTE | 2022-03-17 11:05 | P.PN ---
Subjective Progress Note Date: 03/17/22 Principal diagnosis: abd pain Patient is a 36-year-old female who presented to the emergency department with complaints of abdominal and shoulder pain. She had been seen and diagnosed with ectopic . 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 She underwent an exploratory laparoscopy with evacuation of hemoperitoneum, removal of ectopic with right salpingectomy on 03/15. We were consulted for diabetes. Patient seen and examined at bedside. Feeling much better today no complaints at this time, no nausea no vomiting, pain is improved. General: non toxic, no distress, appears at stated age, obese Derm: warm, dry Head: atraumatic, normocephalic, symmetric Eyes: EOMI, no lid lag, anicteric sclera Mouth: no lip lesion, mucus membranes moist Lung: chest rise equal , no accessory muscle use Neuro: CN II-XI grossly intact, no focal neuro deficits Psych: Alert, oriented, appropriate affect Assessment/plan: DM 2, insulin requiring - D/W patient plan for home insulin Levemir 25 units, Novolog 3 units with breakfast and lunch - 70/30 14 units with Dinner - follow with Dr. White. Acute blood loss anemia - anticipated - no indication for transfusion Leukocytosis, resolved Hyponatremia, resolved Ectopic s/p ex-lap wit evacuation of hemoperitoneum, removal of ectopic with right salpingectomy on 03/15 -Management per [employer] OPERATOR Morbid obesity with BMI 42.5 - continue with structured outpatient weight loss. Thank you for allowing us to participate in the care of this pleasant patient. Do not hesitate to contact us with questions. Someone can be reached from the [facility] hospitalist group all hours of the day at [phone] or via perfect serve. Objective - Vital Signs Vital signs: Vital Signs Temp 98.4 F 03/17/22 08:17 Pulse 119 H 03/17/22 08:17 Resp 18 03/17/22 08:17 BP 106/73 03/17/22 08:17 Pulse Ox 100 03/17/22 08:17 FiO2 Intake & Output 03/16/22 03/17/22 03/17/22 18:59 06:59 18:59 Other: # Voids 1 2 # Bowel Movements 1 - Labs CBC & Chem 7: 03/16/22 07:33 03/16/22 07:33 Labs: Abnormal Lab Results - Last 24 Hours (Table) 03/16/22 03/16/22 03/16/22 Range/Units 12:23 17:27 21:53 POC Glucose (mg/dL) 128 H 151 H 106 H (75-99) mg/dL 03/17/22 03/17/22 Range/Units 02:50 08:12 POC Glucose (mg/dL) 127 H 136 H (75-99) mg/dL
== END 2022-03-17 12:00 | disposition home or self-care (01) | DRG 817 ==
LOC: EC 05:28 → 4FBP 06:54
PROVIDERS: ADMIT Obstetrics & Gynecology; ATTEND Obstetrics & Gynecology
DX: O00.101 Right tubal pregnancy without intrauterine pregnancy (principal); K66.1 Hemoperitoneum; Q79.60 Ehlers-Danlos syndrome, unspecified; D62 Acute posthemorrhagic anemia; Z68.41 Body mass index [BMI] 40.0-44.9, adult; E87.1 Hypo-osmolality and hyponatremia; E11.9 Type 2 diabetes mellitus without complications; D72.829 Elevated white blood cell count, unspecified; E66.01 Morbid (severe) obesity due to excess calories; O09.529 Supervision of elderly multigravida, unspecified trimester; Z79.4 Long term (current) use of insulin; Z80.2 Family history of malignant neoplasm of other respiratory and intrathoracic organs; Z82.49 Family history of ischemic heart disease and other diseases of the circulatory system; Z83.3 Family history of diabetes mellitus; O34.211 Maternal care for low transverse scar from previous cesarean delivery; Z98.890 Other specified postprocedural states; I95.9 Hypotension, unspecified; E28.2 Polycystic ovarian syndrome; Z88.1 Allergy status to other antibiotic agents; Z88.8 Allergy status to other drugs, medicaments and biological substances; Z91.018 Allergy to other foods; Z91.048 Other nonmedicinal substance allergy status; Z28.310 Unvaccinated for COVID-19
CPT/HCPCS: 36415; 74177; 80048; 80053; 83735; 84100; 85025; 85027; 85610; 85730; 86850; 86900; 86901; 86920; 88305; 93005; 99285